=== PATIENT | female | born 1940 | race Caucasian/White ===

== ENCOUNTER 2019-09-18 12:15 | Inpatient (IN) | payer MEDICARE, OTHER ==
[~2019-09-18] VITALS: Ht 165.1 cm; Wt 101.6 kg
[2019-09-18] MEDS ORDERED: GLIMEPIRIDE1 MG (12:33)
[2019-09-18] MEDS ORDERED: VITAMIN (12:33)
[2019-09-18] MEDS ORDERED: INSULIN LI100 UNIT/1 (12:33)
[2019-09-18] MEDS ORDERED: LANTUS 3ML100 UNITS/ (12:33)
[2019-09-18] MEDS ORDERED: CALCITRIOL0.25 MCG (12:33)
[2019-09-18] MEDS ORDERED: LACTULOSE10 GM/152 (12:33)
[2019-09-18] MEDS ORDERED: TYLENOL325 M2 (12:33)
[2019-09-18] MEDS ORDERED: CIPROFLOXACIN500 MG (12:33)
[2019-09-18] MEDS ORDERED: SERTRALINE HCL100 MG (12:33)
[2019-09-18] MEDS ORDERED: PANTOPRAZOLE SO40 MG (12:33)
[2019-09-18] MEDS ORDERED: GABAPENTIN300 MG (12:33)
[2019-09-18] MEDS ORDERED: RIVASTIGMINE6 MG (12:33)
[2019-09-18] MEDS ORDERED: REGLAN5 MG (12:33)
[2019-09-18] MEDS ORDERED: ATORVASTATIN CA10 MG (12:33)
[2019-09-18 13:03] LABS: BASOPHILS # (AUTO) 0.1 (0.0-0.1); BASOPHILS % 1.2 % (0.0-1.0); EOSINOPHILS # (AUTO) 0.2 (0.0-0.4); EOSINOPHILS % 2.9 % (0.0-6.0); HEMOGLOBIN 12.2 g/dL (12.0-16.0); LYMPHOCYTES # (AUTO) 2.1 (1.0-3.2); LYMPHOCYTES % 31.9 % (18.0-39.1); MEAN CORPUSCULAR HEMOGLOBIN 28.3 pg (28-32); MEAN CORPUSCULAR HGB CONC 31.3 g/dL (31-35); MEAN CORPUSCULAR VOLUME 90.5 fL (81-99); MONOCYTES # (AUTO) 0.5 (0.2-0.8); NEUTROPHILS # (AUTO) 3.8 (2.1-6.9); NEUTROPHILS % 56.7 % (38.7-80.0); PLATELET COUNT 144 x10e3/uL (140-360); RED BLOOD COUNT 4.31 x10e6/uL (3.6-5.1); RED CELL DISTRIBUTION WIDTH 13.9 % (11.7-14.4)
[2019-09-18 13:12] LABS: CLARITY,URINE CLEAR (CLEAR); COLOR,URINE YELLOW (YELLOW); KETONES,URINE NEGATIVE (NEGATIVE); LEUKOCYTE ESTERASE ,URINE NEGATIVE (NEGATIVE); NITRITE,URINE NEGATIVE (NEGATIVE); PROTEIN,URINE DIPSTICK >=300 (NEGATIVE); URINE UROBILINOGEN 0.2 mg/dL (0.2 - 1)
[2019-09-18 13:13] LABS: BILIRUBIN,URINE NEGATIVE (NEGATIVE)
[2019-09-18 13:20] LABS: BACTERIA,URINE RARE /HPF; RBC,URINE 0-5 /HPF (0-5); WBC,URINE (MAN) 0-5 /HPF (0-5)
[2019-09-18 13:21] LABS: EPITHELIAL CELLS,URINE FEW /LPF
--- NOTE | 2019-09-18 13:30 | Diagnostic Imaging Report ---
TECHNIQUE: Frontal view of the chest. INDICATION: Weakness COMPARISON: Prior day. IMPRESSION: Lines and hardware: None. Heart and mediastinum: Obscured borders, probable cardiomegaly. Lungs and pleura: Scattered reticulonodular opacities represent atelectasis or atypical infection. Left lower lobe hazy opacity may represent infection. No pleural effusion. No pneumothorax. Soft tissues and bones: No acute abnormality. Signed by: Vasiliy Harris MD on 09/18/2019 1:26 PM
[2019-09-18 13:43] LABS: ALANINE AMINOTRANSFERASE 11 IU/L (0-55); ALBUMIN 2.9 g/dL (3.5-5.0); ALBUMIN/GLOBULIN RATIO 0.7 (0.8-2.0); ALKALINE PHOSPHATASE 79 IU/L (40-150); ANION GAP 11.7 mmol/L (8-16); BLOOD UREA NITROGEN 49 mg/dL (7-26); BUN/CREATININE RATIO 16 (6-25); CALCIUM 8.6 mg/dL (8.4-10.2); CARBON DIOXIDE 22 mmol/L (22-29); CHLORIDE 112 mmol/L (98-107); CREATINE KINASE 82 IU/L (29-168); CREATININE, SERUM 3.15 mg/dL (0.57-1.11); EST GLOMERULAR FILTRATION RATE 14 ML/MIN (60-); GLUCOSE 110 mg/dL (74-118); POTASSIUM 4.7 mmol/L (3.5-5.1); SODIUM 141 mmol/L (136-145)
--- OUTSIDE RECORDS SUMMARY | 2019-09-18 14:06 | XMS REPORT ---
[facility] Address Unknown Phone Unavailable Care Team Providers Care Frame Fixer Name Role Phone CHERELLE KISER Unavailable Unavailable Payers Payer Name Policy Type Policy Number Effective Date Expiration Date Problems This patient has no known problems. Allergies, Adverse Reactions, Alerts Allergy Name Allergy Type Status Severity Reaction(s) Onset Date Inactive Date Treating Clinician Comments Penicillins DA Active PA 2019-04-13 00:00:00 Sulfa (Sulfonamide Antibiotics) DA Active U 2019-03-25 00:00:00 No Known Contrast Allergies DA Active U 2001-02-13 00:00:00 No Known Food Allergies DA Active U 2001-02-13 00:00:00 No Known Other Allergies DA Active U 2001-02-13 00:00:00 SULFA DRUGS DA Active U 2001-02-13 00:00:00 Sulfa (Sulfonamide Antibiotics) DA Active U 2001-02-04 00:00:00 sulfamethoxazole DA Active U 2000-10-04 00:00:00 Medications This patient has no known medications. Results Test Description Test Time Test Comments Text Results Atomic Results Result Comments CHEST SINGLE (PORTABLE) 2019-09-18 13:17:00 [facility] [address], [place] [address] Patient Name: ANGEL SANTOS MR #: [id number] : 1940 Age/Sex: 79/F Req #: [id number] Adm Physician: Ordered by: CHERELLE KISER DO Report #: [id number] Location: ER Room/Bed: Procedure: [id number] DX/CHEST SINGLE (PORTABLE) Exam Date: 09/18/19 Exam Time: 1250 REPORT STATUS: Signed TECHNIQUE: Frontal view of the chest. INDICATION: Weakness COMPARISON: Prior day. IMPRESSION: Lines and hardware: None. Heart and mediastinum: Obscured borders, probable cardiomegaly. Lungs and pleura: Scattered reticulonodular opacities represent atelectasis or atypical infection. Left lower lobe hazy opacity may represent infection. No pleural effusion. No pneumothorax. Soft tissues and bones: No acute abnormality. Signed by: Vasiliy Cabrera MD on 09/18/2019 1:26 PM Dictated By: VASILIY CABRERA DO 1326 Transcribed By: DEEPA on 09/18/19 1326 COPY TO: CHERELLE KISER DO BASIC METABOLIC PANEL 2019-06-06 19:00:00 SODIUM (test code=NA) 142 mmol/L 136-145 POTASSIUM (test code=K) 4.3 mmol/L 3.5-5.1 CHLORIDE (test code=CL) 112.0 mmol/L 98-107 CARBON DIOXIDE (test code=CO2) 22.0 mmol/L 21-32 ANION GAP (test code=GAP) 12.3 10-20 GLUCOSE (test code=GLU) 115 mg/dL 74-106 BLOOD UREA NITROGEN (test code=BUN) 43 mg/dL 7-18 GLOMERULAR FILTRATION RATE (test code=GFR) 18 mL/min >=60 Estimated GFR by using Modified MDRD formula.Chronic kidney disease is defined as either kidney damageor GFR <60 mL/min/1.73 m2 for >3 months. CREATININE (test code=CREAT) 2.60 mg/dL 0.55-1.02 Note change in reference range due to change in reagent. BUN/CREATININE RATIO (test code=BUN/CREA) 16.5 10-20 CALCIUM (test code=CA) 8.7 mg/dL 8.5-10.1 [id number] 19:00:00* Test Item Value Reference Range Comments TROPONIN-I (test code=TROPI) <0.015 ng/mL 0-0.045 CBC W/O [id number] 19:00:00* Test Item Value Reference Range Comments WHITE BLOOD CELL (test code=WBC) 7.8 K/mm3 4.5-12.5 RED BLOOD CELL (test code=RBC) 4.07 mill/mm3 3.7-5.2 HEMOGLOBIN (test code=HGB) 11.9 gram/dL 11.5-15.5 HEMATOCRIT (test code=HCT) 37.0 % 36.0-46.0 MEAN CELL VOLUME (test code=MCV) 90.9 fL 80-98 MEAN CELL HGB (test code=MCH) 29.2 picogram 27.0-33.0 MEAN CELL HGB CONCETRATION (test code=MCHC) 32.2 gram/dL 33.0-36.0 RED CELL DISTRIBUTION WIDTH (test code=RDW) 13.2 % 11.6-16.2 PLATELET COUNT (test code=PLT) 190 K/mm3 150-450 MEAN PLATELET VOLUME (test code=MPV) 10.5 fL 6.7-11.0 BASIC METABOLIC [id number] 18:50:00* Test Item Value Reference Range Comments SODIUM (test code=NA) 142 mmol/L 136-145 POTASSIUM (test code=K) 4.3 mmol/L 3.5-5.1 CHLORIDE (test code=CL) 112.0 mmol/L 98-107 CARBON DIOXIDE (test code=CO2) mmol/L 21-32 ANION GAP (test code=GAP) 10-20 GLUCOSE (test code=GLU) mg/dL 74-106 BLOOD UREA NITROGEN (test code=BUN) mg/dL 7-18 GLOMERULAR FILTRATION RATE (test code=GFR) mL/min >=60 CREATININE (test code=CREAT) mg/dL 0.55-1.02 BUN/CREATININE RATIO (test code=BUN/CREA) 10-20 CALCIUM (test code=CA) mg/dL 8.5-10.1 [id number] 18:50:00* Test Item Value Reference Range Comments TROPONIN-I (test code=TROPI) ng/mL 0-0.045 COMPREHENSIVE METABOLIC [id number] 16:30:00* Test Item Value Reference Range Comments SODIUM (test code=NA) 142 mmol/L 136-145 POTASSIUM (test code=K) 5.0 mmol/L 3.5-5.1 CHLORIDE (test code=CL) 111.0 mmol/L 98-107 CARBON DIOXIDE (test code=CO2) 24.0 mmol/L 21-32 ANION GAP (test code=GAP) 12.0 10-20 GLUCOSE (test code=GLU) 72 mg/dL 74-106 BLOOD UREA NITROGEN (test code=BUN) 82 mg/dL 7-18 GLOMERULAR FILTRATION RATE (test code=GFR) 16 mL/min >=60 Estimated GFR by using Modified MDRD formula.Chronic kidney disease is defined as either kidney damageor GFR <60 mL/min/1.73 m2 for >3 months. CREATININE (test code=CREAT) 2.90 mg/dL 0.55-1.02 Note change in reference range due to change in reagent. BUN/CREATININE RATIO (test code=BUN/CREA) 28.2 10-20 TOTAL PROTEIN (test code=PROT) 7.5 gram/dL 6.4-8.2 ALBUMIN (test code=ALB) 3.2 g/dL 3.4-5.0 GLOBULIN (test code=GLOB) 4.3 gram/dL 2.7-4.2 ALBUMIN/GLOBULIN RATIO (test code=A/G) 0.7 0.75-1.50 CALCIUM (test code=CA) 9.7 mg/dL 8.5-10.1 BILIRUBIN TOTAL (test code=BILT) 0.20 mg/dL 0.0-1.0 SGOT/AST (test code=AST) 12 IUnit/L 15-37 SGPT/ALT (test code=ALT) 12 IUnit/L 12-78 ALKALINE PHOSPHATASE TOTAL (test code=ALKP) 67 IUnit/L 45-117 Note change in reference range due to change in reagent. COMPREHENSIVE METABOLIC [id number] 16:20:00* Test Item Value Reference Range Comments SODIUM (test code=NA) 142 mmol/L 136-145 POTASSIUM (test code=K) 5.0 mmol/L 3.5-5.1 CHLORIDE (test code=CL) 111.0 mmol/L 98-107 CARBON DIOXIDE (test code=CO2) mmol/L 21-32 ANION GAP (test code=GAP) 10-20 GLUCOSE (test code=GLU) mg/dL 74-106 BLOOD UREA NITROGEN (test code=BUN) mg/dL 7-18 GLOMERULAR FILTRATION RATE (test code=GFR) mL/min >=60 CREATININE (test code=CREAT) mg/dL 0.55-1.02 BUN/CREATININE RATIO (test code=BUN/CREA) 10-20 TOTAL PROTEIN (test code=PROT) gram/dL 6.4-8.2 ALBUMIN (test code=ALB) g/dL 3.4-5.0 GLOBULIN (test code=GLOB) gram/dL 2.7-4.2 ALBUMIN/GLOBULIN RATIO (test code=A/G) 0.75-1.50 CALCIUM (test code=CA) mg/dL 8.5-10.1 BILIRUBIN TOTAL (test code=BILT) mg/dL 0.0-1.0 SGOT/AST (test code=AST) IUnit/L 15-37 SGPT/ALT (test code=ALT) IUnit/L 12-78 ALKALINE PHOSPHATASE TOTAL (test code=ALKP) IUnit/L 45-117 CBC W/AUTO [id number] 16:08:00* Test Item Value Reference Range Comments WHITE BLOOD CELL (test code=WBC) 5.8 K/mm3 4.5-12.5 RED BLOOD CELL (test code=RBC) 3.78 mill/mm3 3.7-5.2 HEMOGLOBIN (test code=HGB) 11.3 gram/dL 11.5-15.5 HEMATOCRIT (test code=HCT) 36.0 % 36.0-46.0 MEAN CELL VOLUME (test code=MCV) 95.2 fL 80-98 MEAN CELL HGB (test code=MCH) 29.9 picogram 27.0-33.0 MEAN CELL HGB CONCETRATION (test code=MCHC) 31.4 gram/dL 33.0-36.0 RED CELL DISTRIBUTION WIDTH (test code=RDW) 13.2 % 11.6-16.2 RED CELL DISTRIBUTION WIDTH SD (test code=RDW-SD) 45.6 fL 37.0-51.0 PLATELET COUNT (test code=PLT) 167 K/mm3 150-450 MEAN PLATELET VOLUME (test code=MPV) 10.8 fL 6.7-11.0 NEUTROPHIL % (test code=NT%) 58.6 % 39.0-69.0 IMMATURE GRANULOCYTE % (test code=IG%) 0.9 % 0.0-5.0 LYMPHOCYTE % (test code=LY%) 28.5 % 25.0-55.0 MONOCYTE % (test code=MO%) 7.7 % 0.0-10.0 EOSINOPHIL % (test code=EO%) 2.9 % 0.0-5.0 BASOPHIL % (test code=BA%) 1.4 % 0.0-1.0 NUCLEATED RBC % (test code=NRBC%) 0.0 % 0-0 NEUTROPHIL # (test code=NT#) 3.41 K/mm3 1.8-7.7 IMMATURE GRANULOCYTE # (test code=IG#) 0.05 x10 3/uL 0-0.03 LYMPHOCYTE # (test code=LY#) 1.66 K/mm3 1.0-5.0 MONOCYTE # (test code=MO#) 0.45 K/mm3 0-0.8 EOSINOPHIL # (test code=EO#) 0.17 K/mm3 0.0-0.5 BASOPHIL # (test code=BA#) 0.08 K/mm3 0.0-0.2 NUCLEATED RBC # (test code=NRBC#) 0.00 K/mm3 0.0-0.1 MANUAL DIFF REQUIRED (test code=MDIFF) NO [id number] 13:07:00* Test Item Value Reference Range Comments GLUBED (test code=GLUBED) 125 mg/dL 74-106 [facility] [id number] 08:31:00* Test Item Value Reference Range Comments GLUBED (test code=GLUBED) 96 mg/dL 74-106 [facility] COMPREHENSIVE METABOLIC [id number] 06:46:00* Test Item Value Reference Range Comments SODIUM (test code=NA) 142 mmol/L 136-145 POTASSIUM (test code=K) 4.1 mmol/L 3.5-5.1 CHLORIDE (test code=CL) 109.0 mmol/L 98-107 CARBON DIOXIDE (test code=CO2) 25.0 mmol/L 21-32 ANION GAP (test code=GAP) 12.1 10-20 GLUCOSE (test code=GLU) 129 mg/dL 74-106 BLOOD UREA NITROGEN (test code=BUN) 44 mg/dL 7-18 GLOMERULAR FILTRATION RATE (test code=GFR) 17 mL/min >=60 Estimated GFR by using Modified MDRD formula.Chronic kidney disease is defined as either kidney damageor GFR <60 mL/min/1.73 m2 for >3 months. CREATININE (test code=CREAT) 2.70 mg/dL 0.55-1.02 Note change in reference range due to change in reagent. BUN/CREATININE RATIO (test code=BUN/CREA) 16.3 10-20 TOTAL PROTEIN (test code=PROT) 6.6 gram/dL 6.4-8.2 ALBUMIN (test code=ALB) 2.7 g/dL 3.4-5.0 GLOBULIN (test code=GLOB) 3.9 gram/dL 2.7-4.2 ALBUMIN/GLOBULIN RATIO (test code=A/G) 0.7 0.75-1.50 CALCIUM (test code=CA) 8.7 mg/dL 8.5-10.1 BILIRUBIN TOTAL (test code=BILT) 0.20 mg/dL 0.0-1.0 SGOT/AST (test code=AST) 8 IUnit/L 15-37 SGPT/ALT (test code=ALT) 7 IUnit/L 12-78 ALKALINE PHOSPHATASE TOTAL (test code=ALKP) 58 IUnit/L 45-117 Note change in reference range due to change in reagent. [id number] 06:46:00* Test Item Value Reference Range Comments MAGNESIUM (test code=MAG) 2.0 mg/dL 1.8-2.4 COMPREHENSIVE METABOLIC [id number] 06:33:00* Test Item Value Reference Range Comments SODIUM (test code=NA) 142 mmol/L 136-145 POTASSIUM (test code=K) 4.1 mmol/L 3.5-5.1 CHLORIDE (test code=CL) 109.0 mmol/L 98-107 CARBON DIOXIDE (test code=CO2) mmol/L 21-32 ANION GAP (test code=GAP) 10-20 GLUCOSE (test code=GLU) mg/dL 74-106 BLOOD UREA NITROGEN (test code=BUN) mg/dL 7-18 GLOMERULAR FILTRATION RATE (test code=GFR) mL/min >=60 CREATININE (test code=CREAT) mg/dL 0.55-1.02 BUN/CREATININE RATIO (test code=BUN/CREA) 10-20 TOTAL PROTEIN (test code=PROT) gram/dL 6.4-8.2 ALBUMIN (test code=ALB) g/dL 3.4-5.0 GLOBULIN (test code=GLOB) gram/dL 2.7-4.2 ALBUMIN/GLOBULIN RATIO (test code=A/G) 0.75-1.50 CALCIUM (test code=CA) mg/dL 8.5-10.1 BILIRUBIN TOTAL (test code=BILT) mg/dL 0.0-1.0 SGOT/AST (test code=AST) IUnit/L 15-37 SGPT/ALT (test code=ALT) IUnit/L 12-78 ALKALINE PHOSPHATASE TOTAL (test code=ALKP) IUnit/L 45-117 [id number] 06:33:00* Test Item Value Reference Range Comments MAGNESIUM (test code=MAG) mg/dL 1.8-2.4 PROTHROMBIN [id number] 06:19:00* Test Item Value Reference Range Comments PROTHROMBIN TIME PATIENT (test code=PTP) 11.2 seconds 9.0-14.0 INTERNATIONAL NORMAL RATIO (test code=INR) 1.0 0.8-1.2 The therapeutic range for oral anticoagulant therapy formost indications is an international normalized ratio (INR)of between 2.0 and 3.0. The recommended therapeutic INRrange for various clinical situations is listed below: Clinical Situation INR range Pulmonary e mbolism treatment (2.0-3.0)Venous thrombosis treatmentVenous thrombosis prophylaxis (high risk surgery)Prevention of systemic embolism from: Acute myocardial infarction Valvular heart disease Atrial fibrillation Mechanical prosthetic heart valves (2.5-3.5) IS PATIENT ON ANTICOAGULANTS? YLIST ANTICOAGULANTS ASPIRINCBC W/AUTO DIFF 2019-03-29 06:11:00* Test Item Value Reference Range Comments WHITE BLOOD CELL (test code=WBC) 7.9 K/mm3 4.5-12.5 RED BLOOD CELL (test code=RBC) 3.84 mill/mm3 3.7-5.2 HEMOGLOBIN (test code=HGB) 11.5 gram/dL 11.5-15.5 HEMATOCRIT (test code=HCT) 35.0 % 36.0-46.0 MEAN CELL VOLUME (test code=MCV) 91.1 fL 80-98 MEAN CELL HGB (test code=MCH) 29.9 picogram 27.0-33.0 MEAN CELL HGB CONCETRATION (test code=MCHC) 32.9 gram/dL 33.0-36.0 RED CELL DISTRIBUTION WIDTH (test code=RDW) 13.5 % 11.6-16.2 RED CELL DISTRIBUTION WIDTH SD (test code=RDW-SD) 45.1 fL 37.0-51.0 PLATELET COUNT (test code=PLT) 161 K/mm3 150-450 MEAN PLATELET VOLUME (test code=MPV) 10.5 fL 6.7-11.0 NEUTROPHIL % (test code=NT%) 53.6 % 39.0-69.0 IMMATURE GRANULOCYTE % (test code=IG%) 0.9 % 0.0-5.0 LYMPHOCYTE % (test code=LY%) 31.7 % 25.0-55.0 MONOCYTE % (test code=MO%) 9.1 % 0.0-10.0 EOSINOPHIL % (test code=EO%) 3.2 % 0.0-5.0 BASOPHIL % (test code=BA%) 1.5 % 0.0-1.0 NUCLEATED RBC % (test code=NRBC%) 0.0 % 0-0 NEUTROPHIL # (test code=NT#) 4.22 K/mm3 1.8-7.7 IMMATURE GRANULOCYTE # (test code=IG#) 0.07 x10 3/uL 0-0.03 LYMPHOCYTE # (test code=LY#) 2.50 K/mm3 1.0-5.0 MONOCYTE # (test code=MO#) 0.72 K/mm3 0-0.8 EOSINOPHIL # (test code=EO#) 0.25 K/mm3 0.0-0.5 BASOPHIL # (test code=BA#) 0.12 K/mm3 0.0-0.2 NUCLEATED RBC # (test code=NRBC#) 0.00 K/mm3 0.0-0.1 CBC W/AUTO [id number] 06:06:00* Test Item Value Reference Range Comments WHITE BLOOD CELL (test code=WBC) K/mm3 4.5-12.5 RED BLOOD CELL (test code=RBC) mill/mm3 3.7-5.2 HEMOGLOBIN (test code=HGB) 11.5 gram/dL 11.5-15.5 HEMATOCRIT (test code=HCT) % 36.0-46.0 MEAN CELL VOLUME (test code=MCV) fL 80-98 MEAN CELL HGB (test code=MCH) picogram 27.0-33.0 MEAN CELL HGB CONCETRATION (test code=MCHC) gram/dL 33.0-36.0 RED CELL DISTRIBUTION WIDTH (test code=RDW) % 11.6-16.2 RED CELL DISTRIBUTION WIDTH SD (test code=RDW-SD) fL 37.0-51.0 PLATELET COUNT (test code=PLT) K/mm3 150-450 MEAN PLATELET VOLUME (test code=MPV) fL 6.7-11.0 NEUTROPHIL % (test code=NT%) % 39.0-69.0 IMMATURE GRANULOCYTE % (test code=IG%) % 0.0-5.0 LYMPHOCYTE % (test code=LY%) % 25.0-55.0 MONOCYTE % (test code=MO%) % 0.0-10.0 EOSINOPHIL % (test code=EO%) % 0.0-5.0 BASOPHIL % (test code=BA%) % 0.0-1.0 NEUTROPHIL # (test code=NT#) K/mm3 1.8-7.7 LYMPHOCYTE # (test code=LY#) K/mm3 1.0-5.0 MONOCYTE # (test code=MO#) K/mm3 0-0.8 EOSINOPHIL # (test code=EO#) K/mm3 0.0-0.5 BASOPHIL # (test code=BA#) K/mm3 0.0-0.2 [id number] 20:39:00* Test Item Value Reference Range Comments GLUBED (test code=GLUBED) 138 mg/dL 74-106 Performed by certified apple press operator at [facility] [id number] 15:26:00* Test Item Value Reference Range Comments GLUBED (test code=GLUBED) 154 mg/dL 74-106 Performed by certified apple press operator at [facility] [id number] 11:59:00* Test Item Value Reference Range Comments GLUBED (test code=GLUBED) 166 mg/dL 74-106 Performed by certified apple press operator at [facility] [id number] 07:24:00* Test Item Value Reference Range Comments GLUBED (test code=GLUBED) 85 mg/dL 74-106 Performed by certified apple press operator at [facility] BASIC METABOLIC [id number] 05:19:00* Test Item Value Reference Range Comments SODIUM (test code=NA) 145 mmol/L 136-145 POTASSIUM (test code=K) 4.8 mmol/L 3.5-5.1 CHLORIDE (test code=CL) 112.0 mmol/L 98-107 CARBON DIOXIDE (test code=CO2) 25.0 mmol/L 21-32 ANION GAP (test code=GAP) 12.8 10-20 GLUCOSE (test code=GLU) 85 mg/dL 74-106 BLOOD UREA NITROGEN (test code=BUN) 42 mg/dL 7-18 GLOMERULAR FILTRATION RATE (test code=GFR) 18 mL/min >=60 Estimated GFR by using Modified MDRD formula.Chronic kidney disease is defined as either kidney damageor GFR <60 mL/min/1.73 m2 for >3 months. CREATININE (test code=CREAT) 2.60 mg/dL 0.55-1.02 Note change in reference range due to change in reagent. BUN/CREATININE RATIO (test code=BUN/CREA) 15.8 10-20 CALCIUM (test code=CA) 9.0 mg/dL 8.5-10.1 BASIC METABOLIC [id number] 05:11:00* Test Item Value Reference Range Comments SODIUM (test code=NA) 145 mmol/L 136-145 POTASSIUM (test code=K) 4.8 mmol/L 3.5-5.1 CHLORIDE (test code=CL) 112.0 mmol/L 98-107 CARBON DIOXIDE (test code=CO2) mmol/L 21-32 ANION GAP (test code=GAP) 10-20 GLUCOSE (test code=GLU) mg/dL 74-106 BLOOD UREA NITROGEN (test code=BUN) mg/dL 7-18 GLOMERULAR FILTRATION RATE (test code=GFR) mL/min >=60 CREATININE (test code=CREAT) mg/dL 0.55-1.02 BUN/CREATININE RATIO (test code=BUN/CREA) 10-20 CALCIUM (test code=CA) mg/dL 8.5-10.1 [id number] 20:51:00* Test Item Value Reference Range Comments GLUBED (test code=GLUBED) 146 mg/dL 74-106 Performed by certified apple press operator at [facility] [id number] 15:55:00* Test Item Value Reference Range Comments GLUBED (test code=GLUBED) 105 mg/dL 74-106 Performed by certified apple press operator at [facility] [id number] 11:50:00* Test Item Value Reference Range Comments GLUBED (test code=GLUBED) 161 mg/dL 74-106 Performed by certified apple press operator at [facility] [id number] 07:47:00* Test Item Value Reference Range Comments GLUBED (test code=GLUBED) 92 mg/dL 74-106 Performed by certified apple press operator at [facility] BASIC METABOLIC [id number] 06:15:00* Test Item Value Reference Range Comments SODIUM (test code=NA) 143 mmol/L 136-145 POTASSIUM (test code=K) 4.2 mmol/L 3.5-5.1 CHLORIDE (test code=CL) 111.0 mmol/L 98-107 CARBON DIOXIDE (test code=CO2) 23.0 mmol/L 21-32 ANION GAP (test code=GAP) 13.2 10-20 GLUCOSE (test code=GLU) 118 mg/dL 74-106 BLOOD UREA NITROGEN (test code=BUN) 39 mg/dL 7-18 GLOMERULAR FILTRATION RATE (test code=GFR) 17 mL/min >=60 Estimated GFR by using Modified MDRD formula.Chronic kidney disease is defined as either kidney damageor GFR <60 mL/min/1.73 m2 for >3 months. CREATININE (test code=CREAT) 2.70 mg/dL 0.55-1.02 Note change in reference range due to change in reagent. BUN/CREATININE RATIO (test code=BUN/CREA) 14.6 10-20 CALCIUM (test code=CA) 8.6 mg/dL 8.5-10.1 BASIC METABOLIC [id number] 05:59:00* Test Item Value Reference Range Comments SODIUM (test code=NA) 143 mmol/L 136-145 POTASSIUM (test code=K) 4.2 mmol/L 3.5-5.1 CHLORIDE (test code=CL) 111.0 mmol/L 98-107 CARBON DIOXIDE (test code=CO2) mmol/L 21-32 ANION GAP (test code=GAP) 10-20 GLUCOSE (test code=GLU) mg/dL 74-106 BLOOD UREA NITROGEN (test code=BUN) mg/dL 7-18 GLOMERULAR FILTRATION RATE (test code=GFR) mL/min >=60 CREATININE (test code=CREAT) mg/dL 0.55-1.02 BUN/CREATININE RATIO (test code=BUN/CREA) 10-20 CALCIUM (test code=CA) mg/dL 8.5-10.1 CBC W/AUTO [id number] 05:37:00* Test Item Value Reference Range Comments WHITE BLOOD CELL (test code=WBC) K/mm3 4.5-12.5 RED BLOOD CELL (test code=RBC) mill/mm3 3.7-5.2 HEMOGLOBIN (test code=HGB) 11.7 gram/dL 11.5-15.5 HEMATOCRIT (test code=HCT) % 36.0-46.0 MEAN CELL VOLUME (test code=MCV) fL 80-98 MEAN CELL HGB (test code=MCH) picogram 27.0-33.0 MEAN CELL HGB CONCETRATION (test code=MCHC) gram/dL 33.0-36.0 RED CELL DISTRIBUTION WIDTH (test code=RDW) % 11.6-16.2 RED CELL DISTRIBUTION WIDTH SD (test code=RDW-SD) fL 37.0-51.0 PLATELET COUNT (test code=PLT) K/mm3 150-450 MEAN PLATELET VOLUME (test code=MPV) fL 6.7-11.0 NEUTROPHIL % (test code=NT%) % 39.0-69.0 IMMATURE GRANULOCYTE % (test code=IG%) % 0.0-5.0 LYMPHOCYTE % (test code=LY%) % 25.0-55.0 MONOCYTE % (test code=MO%) % 0.0-10.0 EOSINOPHIL % (test code=EO%) % 0.0-5.0 BASOPHIL % (test code=BA%) % 0.0-1.0 NEUTROPHIL # (test code=NT#) K/mm3 1.8-7.7 LYMPHOCYTE # (test code=LY#) K/mm3 1.0-5.0 MONOCYTE # (test code=MO#) K/mm3 0-0.8 EOSINOPHIL # (test code=EO#) K/mm3 0.0-0.5 BASOPHIL # (test code=BA#) K/mm3 0.0-0.2 CBC W/AUTO [id number] 05:37:00* Test Item Value Reference Range Comments WHITE BLOOD CELL (test code=WBC) 7.0 K/mm3 4.5-12.5 RED BLOOD CELL (test code=RBC) 3.90 mill/mm3 3.7-5.2 HEMOGLOBIN (test code=HGB) 11.7 gram/dL 11.5-15.5 HEMATOCRIT (test code=HCT) 35.0 % 36.0-46.0 MEAN CELL VOLUME (test code=MCV) 89.7 fL 80-98 MEAN CELL HGB (test code=MCH) 30.0 picogram 27.0-33.0 MEAN CELL HGB CONCETRATION (test code=MCHC) 33.4 gram/dL 33.0-36.0 RED CELL DISTRIBUTION WIDTH (test code=RDW) 13.0 % 11.6-16.2 RED CELL DISTRIBUTION WIDTH SD (test code=RDW-SD) 42.7 fL 37.0-51.0 PLATELET COUNT (test code=PLT) 153 K/mm3 150-450 MEAN PLATELET VOLUME (test code=MPV) 10.7 fL 6.7-11.0 NEUTROPHIL % (test code=NT%) 54.8 % 39.0-69.0 IMMATURE GRANULOCYTE % (test code=IG%) 0.9 % 0.0-5.0 LYMPHOCYTE % (test code=LY%) 31.5 % 25.0-55.0 MONOCYTE % (test code=MO%) 8.6 % 0.0-10.0 EOSINOPHIL % (test code=EO%) 3.1 % 0.0-5.0 BASOPHIL % (test code=BA%) 1.1 % 0.0-1.0 NUCLEATED RBC % (test code=NRBC%) 0.0 % 0-0 NEUTROPHIL # (test code=NT#) 3.83 K/mm3 1.8-7.7 IMMATURE GRANULOCYTE # (test code=IG#) 0.06 x10 3/uL 0-0.03 LYMPHOCYTE # (test code=LY#) 2.20 K/mm3 1.0-5.0 MONOCYTE # (test code=MO#) 0.60 K/mm3 0-0.8 EOSINOPHIL # (test code=EO#) 0.22 K/mm3 0.0-0.5 BASOPHIL # (test code=BA#) 0.08 K/mm3 0.0-0.2 NUCLEATED RBC # (test code=NRBC#) 0.00 K/mm3 0.0-0.1 MANUAL DIFF REQUIRED (test code=MDIFF) NO [id number] 22:44:00* Test Item Value Reference Range Comments GLUBED (test code=GLUBED) 120 mg/dL 74-106 Performed by certified apple press operator at [facility] UR PROTEIN/CREATININE [id number] 19:17:00* Test Item Value Reference Range Comments UR PROTEIN RANDOM (test code=PROTU) 92.6 mg/dL 0.0-11.9 Protein levels may be falsely elevated in patients withelevated level of aminoglycoside antibiotics in CSF and inhighly concentrated urine specimens. If false elevation issuspected, contact lab for alternated testing technique. UR CREATININE RANDOM (test code=CREATU) 28.0 mg/dL 30-125 PROTEIN/CREATININE RATIO (test code=P/CRATIO) 3.31 RATIO 0.0-0.20 [id number] 16:07:00* Test Item Value Reference Range Comments GLUBED (test code=GLUBED) 175 mg/dL 74-106 Performed by certified apple press operator at [facility] SED RATE [id number] 12:54:00* Test Item Value Reference Range Comments SED RATE WESTERGREN (test code=SEDW) 44 mm/hr 0-20 SED [id number] 12:54:00* Test Item Value Reference Range Comments SED RATE (test code=SEDW) 44 mm/hr 0-20 WINTROBE METHOD: NORMAL RANGE FOR MEN: 0-9 MM/HR WOMAN: 0-20 MM/HR [id number] 11:33:00* Test Item Value Reference Range Comments GLUBED (test code=GLUBED) 96 mg/dL 74-106 Performed by certified apple press operator at [facility] - XR FOOT 2 VIEWS [id number] 09:18:00 FAX: Juni Rees MD [phone] [place]: St: ADM Name: ANGEL ROTH [facility] : [birth year] Age/S: 78/F [address] [facility] Unit #: [id number] Loc: [address] [address] Phys: Juni Tejeda MD Acct: [id number] Dis Date: Status: ADM IN PHONE #: [phone] Exam Date: 03/26/2019 0851 FAX #: [phone] Reason: RT FOOT ULCER EXAMS: CPT CODE: [id number] XR FOOT [address] [place] [id number] HISTORY: Right foot ulcer. COMPARISON: None available. AP and lateral view of the right foot: Postop changes within the distal first metatarsal bone with screw stabilizing the distal first metatarsal bone. Polyarticular joint space narrowing. Severe narrowing of the tarsal metatarsal joint space especially. Os navicularis. Calcification of the plantar fascia Achilles enthesophyte. Vascular calcifications. No erosive or destructive changes are visible. Correlate with MRI scan for further evaluation. Mild diffuse soft tissue swelling especially along the phalanges. IMPR ESSION: No erosive or destructive changes noted. Soft tissue s welling of the phalanges with advanced degenerative changes. Correlate w ith MRI scan for osteomyelitis evaluation. Electronically Si gned by Es Noel on 03/26/2019 at 0918 Reported and signed by: Fco Noel M.D. CC: Juni Tejeda MD Technologist: Linnette Kumar; STUDENT ERIC HNOLOGIST Trnscrd Date/Time/By: 03/26/2019 (917) : By: [email or web address] Orig Print D/T: S: 03/26/2019 (920) PAGE 1 Signed Report [id number] 08:04:00* Test Item Value Reference Range Comments GLUBED (test code=GLUBED) 80 mg/dL 74-106 Performed by certified apple press operator at [facility] [id number] 07:39:00* Test Item Value Reference Range Comments GLYCOSYLATED HEMOGLOBIN (HA1C) (test code=GLYHGB) 6.7 % HbA1 4.8-6.0 ESTIMATED AVERAGE GLUCOSE (test code=EAG) 146 MG/DL C REACTIVE [id number] 07:03:00* Test Item Value Reference Range Comments C REACTIVE PROTEIN (test code=CRP) 1.15 mg/dL 0-0.3 COMPREHENSIVE METABOLIC [id number] 06:50:00* Test Item Value Reference Range Comments SODIUM (test code=NA) 144 mmol/L 136-145 POTASSIUM (test code=K) 4.3 mmol/L 3.5-5.1 CHLORIDE (test code=CL) 112.0 mmol/L 98-107 CARBON DIOXIDE (test code=CO2) 24.0 mmol/L 21-32 ANION GAP (test code=GAP) 12.3 10-20 GLUCOSE (test code=GLU) 84 mg/dL 74-106 BLOOD UREA NITROGEN (test code=BUN) 45 mg/dL 7-18 GLOMERULAR FILTRATION RATE (test code=GFR) 19 mL/min >=60 Estimated GFR by using Modified MDRD formula.Chronic kidney disease is defined as either kidney damageor GFR <60 mL/min/1.73 m2 for >3 months. CREATININE (test code=CREAT) 2.40 mg/dL 0.55-1.02 Note change in reference range due to change in reagent. BUN/CREATININE RATIO (test code=BUN/CREA) 18.4 10-20 TOTAL PROTEIN (test code=PROT) 6.6 gram/dL 6.4-8.2 ALBUMIN (test code=ALB) 2.8 g/dL 3.4-5.0 GLOBULIN (test code=GLOB) 3.8 gram/dL 2.7-4.2 ALBUMIN/GLOBULIN RATIO (test code=A/G) 0.7 0.75-1.50 CALCIUM (test code=CA) 8.6 mg/dL 8.5-10.1 BILIRUBIN TOTAL (test code=BILT) 0.30 mg/dL 0.0-1.0 SGOT/AST (test code=AST) 13 IUnit/L 15-37 SGPT/ALT (test code=ALT) 10 IUnit/L 12-78 ALKALINE PHOSPHATASE TOTAL (test code=ALKP) 57 IUnit/L 45-117 Note change in reference range due to change in reagent. LIPID PROFILE (CORONARY RISK)2019-03-26 06:50:00* Test Item Value Reference Range Comments TRIGLYCERIDES (test code=TRIG) 170 mg/dL 20-150 CHOLESTEROL (test code=CHOL) 171 mg/dL 0-200 CHOLESTEROL/HDL RATIO (test code=CHOLHDL) 4.0 RATIO 0-4.9 RISK ASSOCIATED WITH CHOL/HDL RATIOS: Risk Male Female1/2 AVERAGE 3.43 3.27AVERAGE 4.97 4.442X AVERAGE 9.55 7.053X AVERAGE 23.39 11.04 REFERENCE VALUE IS RELATED TO RISK LEVELS ASRECOMMENDED BY THE [facility]. HEART, LUNG, AND BLOOD INST. HDL CHOLESTEROL (test code=HDL) 40 mg/dL 40-60 LIPOPROTEIN LDL (test code=LDL) 112 mg/dL 100-129 RN PERSONNEL, CONTACT PHYSICIAN IMMEDIATELY IF THIS IS A STROKE, AMI OR CAROTID STENOSIS PATIENT WHEN THE LDL >100 (1ST OCCURENCE, THIS ADMISSION) Reference Interval: mg/dL mmol/L Optimal <100 <2.6Near/above optimal 100-129 2.6- 3.3Borderline High 130-159 3.4-4.1High 160-189 4.1-4.9Very High >=190 >=4.9=========This LDL result is a direct measurement.========= [id number] 06:50:00* Test Item Value Reference Range Comments PHOSPHORUS (test code=PHOS) 3.2 mg/dL 2.5-4.9 URIC [id number] 06:50:00* Test Item Value Reference Range Comments URIC ACID (test code=URIC) 7.1 mg/dL 2.6-7.2 [id number] 06:50:00* Test Item Value Reference Range Comments MAGNESIUM (test code=MAG) 1.8 mg/dL 1.8-2.4 TSH REFLEX TO [id number] 06:50:00* Test Item Value Reference Range Comments TSH REFLEX TO FT4 (test code=TSHREFLEX) 2.6 0.4-5.5 B-TYPE NATRIURETIC [id number] 06:39:00* Test Item Value Reference Range Comments B-TYPE NATRIURETIC PEPTIDE (test code=BNP) 104.68 pgram/mL 0-100 LACTIC [id number] 06:39:00* Test Item Value Reference Range Comments LACTIC ACID (test code=LACT) 0.7 mmol/L 0.4-1.9 COMPREHENSIVE METABOLIC [id number] 06:38:00* Test Item Value Reference Range Comments SODIUM (test code=NA) 144 mmol/L 136-145 POTASSIUM (test code=K) 4.3 mmol/L 3.5-5.1 CHLORIDE (test code=CL) 112.0 mmol/L 98-107 CARBON DIOXIDE (test code=CO2) mmol/L 21-32 ANION GAP (test code=GAP) 10-20 GLUCOSE (test code=GLU) mg/dL 74-106 BLOOD UREA NITROGEN (test code=BUN) mg/dL 7-18 GLOMERULAR FILTRATION RATE (test code=GFR) mL/min >=60 CREATININE (test code=CREAT) mg/dL 0.55-1.02 BUN/CREATININE RATIO (test code=BUN/CREA) 10-20 TOTAL PROTEIN (test code=PROT) gram/dL 6.4-8.2 ALBUMIN (test code=ALB) g/dL 3.4-5.0 GLOBULIN (test code=GLOB) gram/dL 2.7-4.2 ALBUMIN/GLOBULIN RATIO (test code=A/G) 0.75-1.50 CALCIUM (test code=CA) mg/dL 8.5-10.1 BILIRUBIN TOTAL (test code=BILT) mg/dL 0.0-1.0 SGOT/AST (test code=AST) IUnit/L 15-37 SGPT/ALT (test code=ALT) IUnit/L 12-78 ALKALINE PHOSPHATASE TOTAL (test code=ALKP) IUnit/L 45-117 LIPID PROFILE (CORONARY RISK)2019-03-26 06:38:00* Test Item Value Reference Range Comments TRIGLYCERIDES (test code=TRIG) mg/dL 20-150 CHOLESTEROL (test code=CHOL) mg/dL 0-200 CHOLESTEROL/HDL RATIO (test code=CHOLHDL) RATIO 0-4.9 HDL CHOLESTEROL (test code=HDL) mg/dL 40-60 LIPOPROTEIN LDL (test code=LDL) mg/dL 100-129 [id number] 06:38:00* Test Item Value Reference Range Comments PHOSPHORUS (test code=PHOS) mg/dL 2.5-4.9 URIC [id number] 06:38:00* Test Item Value Reference Range Comments URIC ACID (test code=URIC) mg/dL 2.6-7.2 [id number] 06:38:00* Test Item Value Reference Range Comments MAGNESIUM (test code=MAG) mg/dL 1.8-2.4 TSH REFLEX TO [id number] 06:38:00* Test Item Value Reference Range Comments TSH REFLEX TO FT4 (test code=TSHREFLEX) 0.4-5.5 PROTHROMBIN [id number] 06:28:00* Test Item Value Reference Range Comments PROTHROMBIN TIME PATIENT (test code=PTP) 11.6 seconds 9.0-14.0 INTERNATIONAL NORMAL RATIO (test code=INR) 1.0 0.8-1.2 The therapeutic range for oral anticoagulant therapy formost indications is an international normalized ratio (INR)of between 2.0 and 3.0. The recommended therapeutic INRrange for various clinical situations is listed below: Clinical Situation INR range Pulmonary e mbolism treatment (2.0-3.0)Venous thrombosis treatmentVenous thrombosis prophylaxis (high risk surgery)Prevention of systemic embolism from: Acute myocardial infarction Valvular heart disease Atrial fibrillation Mechanical prosthetic heart valves (2.5-3.5) IS PATIENT ON ANTICOAGULANTS? YLIST ANTICOAGULANTS ASPIRINCBC W/AUTO DIFF 2019-03-26 06:06:00* Test Item Value Reference Range Comments WHITE BLOOD CELL (test code=WBC) 6.5 K/mm3 4.5-12.5 RED BLOOD CELL (test code=RBC) 3.61 mill/mm3 3.7-5.2 HEMOGLOBIN (test code=HGB) 10.8 gram/dL 11.5-15.5 HEMATOCRIT (test code=HCT) 33.7 % 36.0-46.0 MEAN CELL VOLUME (test code=MCV) 93.4 fL 80-98 MEAN CELL HGB (test code=MCH) 29.9 picogram 27.0-33.0 MEAN CELL HGB CONCETRATION (test code=MCHC) 32.0 gram/dL 33.0-36.0 RED CELL DISTRIBUTION WIDTH (test code=RDW) 13.2 % 11.6-16.2 RED CELL DISTRIBUTION WIDTH SD (test code=RDW-SD) 45.1 fL 37.0-51.0 PLATELET COUNT (test code=PLT) 141 K/mm3 150-450 MEAN PLATELET VOLUME (test code=MPV) 10.5 fL 6.7-11.0 NEUTROPHIL % (test code=NT%) 51.1 % 39.0-69.0 IMMATURE GRANULOCYTE % (test code=IG%) 0.9 % 0.0-5.0 LYMPHOCYTE % (test code=LY%) 35.9 % 25.0-55.0 MONOCYTE % (test code=MO%) 8.0 % 0.0-10.0 EOSINOPHIL % (test code=EO%) 2.6 % 0.0-5.0 BASOPHIL % (test code=BA%) 1.5 % 0.0-1.0 NUCLEATED RBC % (test code=NRBC%) 0.0 % 0-0 NEUTROPHIL # (test code=NT#) 3.32 K/mm3 1.8-7.7 IMMATURE GRANULOCYTE # (test code=IG#) 0.06 x10 3/uL 0-0.03 LYMPHOCYTE # (test code=LY#) 2.34 K/mm3 1.0-5.0 MONOCYTE # (test code=MO#) 0.52 K/mm3 0-0.8 EOSINOPHIL # (test code=EO#) 0.17 K/mm3 0.0-0.5 BASOPHIL # (test code=BA#) 0.10 K/mm3 0.0-0.2 NUCLEATED RBC # (test code=NRBC#) 0.00 K/mm3 0.0-0.1 MANUAL DIFF REQUIRED (test code=MDIFF) NO [id number] 21:16:00* Test Item Value Reference Range Comments GLUBED (test code=GLUBED) 138 mg/dL 74-106 Performed by certified apple press operator at [facility] - US ABDOMEN [id number] 20:03:00 Name: ANGEL SANTOS [facility] : 1940 Age/S: 78 / F [address] [facility] Unit #: [id number] Loc: EULALIO Ugal[place] [address] Phys: Juni Tejeda MD Acct: [id number] Dis Date: Status: ADM IN PHONE #: [phone] Exam Date: 03/25/2019 1949 FAX #: [phone] Reason: KATIE/CKD / ABDOMINAL PAIN EXAMS: CPT CODE: [id number] US ABDOMEN COMPLETE [id number] REASON FOR EXAM: KATIE/CKD / ABDOMINAL PAIN EXAM ORDER DATE: 03/25/2019 4:56 PM Attending Es: Juni Tejeda MD PROCEDURE: - US ABDOMEN COMPLETE FINDINGS: The liver is unremarkable. There is no evidence of focal mass identified. The pancreas is within normal limits. The right kidney measures 9.1 x 4.7 cm. The left kidney measures 10.4 x 5 cm. There is no evidence of hydronephrosis. There is no evidence of nephrolithiasis. There is no evidence of renal mass. The spleen measures 9.4 cm. The patient is status post cholecystectomy. No evidence of gallbladder wall thickening or pericholecystic fluid. The common bile duct measures 0.6 cm. There is no evidence of ascites. The aorta and IVC are within normal limits. The portal vein is patent with hepatopetal flow IMPRESSION: Status post cholecystectomy. Severe echogenic kidneys consistent with chronic medical renal disease. at 2002 Reported and signed by: Fracisco Anne M.D. CC: Juni Tejeda MD Technologist: CUCA SANDOVAL Trnscb Date/Time: 03/25/2019 (2002) [email or web address] Orig Print D/T: S: 03/25/2019 (2006) Probe: PAGE 1 Signed Report [id number] 19:25:00* Test Item Value Reference Range Comments TROPONIN-I (test code=TROPI) <0.015 ng/mL 0-0.045 COMMENTS TO REVISING CLERK: COLLECT 3 HOURS AFTER PREVIOUS SAMPLEURINALYSIS [id number] 19:01:00* Test Item Value Reference Range Comments UA COLOR (test code=COLU) Light-Yellow YELLOW UA APPEARANCE (test code=APPU) Cloudy CLEAR UA GLUCOSE DIPSTICK (test code=DGLUU) NEGATIVE mg/dL NEGATIVE UA BILIRUBIN DIPSTICK (test code=BILU) NEGATIVE mg/dL NEGATIVE UA KETONE DIPSTICK (test code=KETU) NEGATIVE mg/dL NEGATIVE UA SPECIFIC GRAVITY (test code=SGU) 1.010 1.001-1.035 UA BLOOD DIPSTICK (test code=PELON) 0.03 mg/dL (Trace) mg/dL NEGATIVE UA PH DIPSTICK (test code=SHAHEED) 6.0 5.0-8.0 UA PROTEIN DIPSTICK (test code=PROU) 100 (2+) mg/dL NEGATIVE UA UROBILINIOGEN DIPSTICK (test code=URO) Normal mg/dL NEGATIVE UA NITRITE DIPSTICK (test code=KIKO) NEGATIVE NEGATIVE UA LEUKOCYTE ESTERASE W REFLEX (test code=LEUUR) 500 Ray/uL (3+) Ray/uL NEGATIVE UA WBC (test code=WBCU) 51-100 per HPF 0-5 UA RBC (test code=RBCU) 6-10 #/HPF 0-5 UA WBC CLUMPS (test code=WBCUCL) >10 /HPF NONE UA EPITHELIAL CELLS (test code=EPIU) FEW per HPF FEW UA BACTERIA (test code=BACU) MANY #/HPF NONE UA MUCUS (test code=MUCU) MODERATE #/LPF FEW Urine Source? Clean CatchUR NA,[id number] 19:01:00* Test Item Value Reference Range Comments UR NA,RANDOM (test code=SERA) 119 mmol/L 20-110 Urine Source? Clean CatchUR CREATININE [id number] 19:01:00* Test Item Value Reference Range Comments UR CREATININE RANDOM (test code=CREATU) 37.0 mg/dL 30-125 Urine Source? Clean CatchUR OSMOLALITY [id number] 19:01:00* Test Item Value Reference Range Comments UR OSMOLALITY RANDOM (test code=OSMOU) 397.5 mOsm/kg 48-962 Urine Source? Clean CatchURINALYSIS [id number] 18:59:00* Test Item Value Reference Range Comments UA COLOR (test code=COLU) Light-Yellow YELLOW UA APPEARANCE (test code=APPU) Cloudy CLEAR UA GLUCOSE DIPSTICK (test code=DGLUU) NEGATIVE mg/dL NEGATIVE UA BILIRUBIN DIPSTICK (test code=BILU) NEGATIVE mg/dL NEGATIVE UA KETONE DIPSTICK (test code=KETU) NEGATIVE mg/dL NEGATIVE UA SPECIFIC GRAVITY (test code=SGU) 1.010 1.001-1.035 UA BLOOD DIPSTICK (test code=PELON) 0.03 mg/dL (Trace) mg/dL NEGATIVE UA PH DIPSTICK (test code=SHAHEED) 6.0 5.0-8.0 UA PROTEIN DIPSTICK (test code=PROU) 100 (2+) mg/dL NEGATIVE UA UROBILINIOGEN DIPSTICK (test code=URO) Normal mg/dL NEGATIVE UA NITRITE DIPSTICK (test code=KIKO) NEGATIVE NEGATIVE UA LEUKOCYTE ESTERASE W REFLEX (test code=LEUUR) 500 Ray/uL (3+) Ray/uL NEGATIVE UA WBC (test code=WBCU) 51-100 per HPF 0-5 UA RBC (test code=RBCU) 6-10 #/HPF 0-5 UA WBC CLUMPS (test code=WBCUCL) >10 /HPF NONE UA EPITHELIAL CELLS (test code=EPIU) FEW per HPF FEW UA BACTERIA (test code=BACU) MANY #/HPF NONE UA MUCUS (test code=MUCU) MODERATE #/LPF FEW Urine Source? Clean CatchUR NA,[id number] 18:59:00* Test Item Value Reference Range Comments UR NA,RANDOM (test code=SERA) 119 mmol/L 20-110 Urine Source? Clean CatchUR CREATININE [id number] 18:59:00* Test Item Value Reference Range Comments UR CREATININE RANDOM (test code=CREATU) 37.0 mg/dL 30-125 Urine Source? Clean CatchUR OSMOLALITY [id number] 18:59:00* Test Item Value Reference Range Comments UR OSMOLALITY RANDOM (test code=OSMOU) mOsm/kg 48-962 Urine Source? Clean CatchURINALYSIS [id number] 18:54:00* Test Item Value Reference Range Comments UA COLOR (test code=COLU) Light-Yellow YELLOW UA APPEARANCE (test code=APPU) Cloudy CLEAR UA GLUCOSE DIPSTICK (test code=DGLUU) NEGATIVE mg/dL NEGATIVE UA BILIRUBIN DIPSTICK (test code=BILU) NEGATIVE mg/dL NEGATIVE UA KETONE DIPSTICK (test code=KETU) NEGATIVE mg/dL NEGATIVE UA SPECIFIC GRAVITY (test code=SGU) 1.010 1.001-1.035 UA BLOOD DIPSTICK (test code=PELON) 0.03 mg/dL (Trace) mg/dL NEGATIVE UA PH DIPSTICK (test code=SHAHEED) 6.0 5.0-8.0 UA PROTEIN DIPSTICK (test code=PROU) 100 (2+) mg/dL NEGATIVE UA UROBILINIOGEN DIPSTICK (test code=URO) Normal mg/dL NEGATIVE UA NITRITE DIPSTICK (test code=KIKO) NEGATIVE NEGATIVE UA LEUKOCYTE ESTERASE W REFLEX (test code=LEUUR) 500 Ray/uL (3+) Ray/uL NEGATIVE UA WBC (test code=WBCU) 51-100 per HPF 0-5 UA RBC (test code=RBCU) 6-10 #/HPF 0-5 UA WBC CLUMPS (test code=WBCUCL) >10 /HPF NONE UA EPITHELIAL CELLS (test code=EPIU) FEW per HPF FEW UA BACTERIA (test code=BACU) MANY #/HPF NONE UA MUCUS (test code=MUCU) MODERATE #/LPF FEW Urine Source? Clean CatchUR NA,[id number] 18:54:00* Test Item Value Reference Range Comments UR NA,RANDOM (test code=SERA) 119 mmol/L 20-110 Urine Source? Clean CatchUR CREATININE [id number] 18:54:00* Test Item Value Reference Range Comments UR CREATININE RANDOM (test code=CREATU) mg/dL 30-125 Urine Source? Clean CatchUR OSMOLALITY [id number] 18:54:00* Test Item Value Reference Range Comments UR OSMOLALITY RANDOM (test code=OSMOU) mOsm/kg 48-962 Urine Source? Clean CatchURINALYSIS [id number] 18:51:00* Test Item Value Reference Range Comments UA COLOR (test code=COLU) Light-Yellow YELLOW UA APPEARANCE (test code=APPU) Cloudy CLEAR UA GLUCOSE DIPSTICK (test code=DGLUU) NEGATIVE mg/dL NEGATIVE UA BILIRUBIN DIPSTICK (test code=BILU) NEGATIVE mg/dL NEGATIVE UA KETONE DIPSTICK (test code=KETU) NEGATIVE mg/dL NEGATIVE UA SPECIFIC GRAVITY (test code=SGU) 1.010 1.001-1.035 UA BLOOD DIPSTICK (test code=PELON) 0.03 mg/dL (Trace) mg/dL NEGATIVE UA PH DIPSTICK (test code=SHAHEED) 6.0 5.0-8.0 UA PROTEIN DIPSTICK (test code=PROU) 100 (2+) mg/dL NEGATIVE UA UROBILINIOGEN DIPSTICK (test code=URO) Normal mg/dL NEGATIVE UA NITRITE DIPSTICK (test code=KIKO) NEGATIVE NEGATIVE UA LEUKOCYTE ESTERASE W REFLEX (test code=LEUUR) 500 Ray/uL (3+) Ray/uL NEGATIVE UA WBC (test code=WBCU) 51-100 per HPF 0-5 UA RBC (test code=RBCU) 6-10 #/HPF 0-5 UA WBC CLUMPS (test code=WBCUCL) >10 /HPF NONE UA EPITHELIAL CELLS (test code=EPIU) FEW per HPF FEW UA BACTERIA (test code=BACU) MANY #/HPF NONE UA MUCUS (test code=MUCU) MODERATE #/LPF FEW Urine Source? Clean CatchUR NA,[id number] 18:51:00* Test Item Value Reference Range Comments UR NA,RANDOM (test code=SERA) mmol/L 20-110 Urine Source? Clean CatchUR CREATININE [id number] 18:51:00* Test Item Value Reference Range Comments UR CREATININE RANDOM (test code=CREATU) mg/dL 30-125 Urine Source? Clean CatchUR OSMOLALITY [id number] 18:51:00* Test Item Value Reference Range Comments UR OSMOLALITY RANDOM (test code=OSMOU) mOsm/kg 48-962 Urine Source? Clean CatchURINALYSIS [id number] 18:41:00* Test Item Value Reference Range Comments UA COLOR (test code=COLU) Light-Yellow YELLOW UA APPEARANCE (test code=APPU) Cloudy CLEAR UA GLUCOSE DIPSTICK (test code=DGLUU) NEGATIVE mg/dL NEGATIVE UA BILIRUBIN DIPSTICK (test code=BILU) NEGATIVE mg/dL NEGATIVE UA KETONE DIPSTICK (test code=KETU) NEGATIVE mg/dL NEGATIVE UA SPECIFIC GRAVITY (test code=SGU) 1.010 1.001-1.035 UA BLOOD DIPSTICK (test code=PELON) 0.03 mg/dL (Trace) mg/dL NEGATIVE UA PH DIPSTICK (test code=SHAHEED) 6.0 5.0-8.0 UA PROTEIN DIPSTICK (test code=PROU) 100 (2+) mg/dL NEGATIVE UA UROBILINIOGEN DIPSTICK (test code=URO) Normal mg/dL NEGATIVE UA NITRITE DIPSTICK (test code=KIKO) NEGATIVE NEGATIVE UA LEUKOCYTE ESTERASE W REFLEX (test code=LEUUR) 500 Ray/uL (3+) Ray/uL NEGATIVE UA WBC (test code=WBCU) per HPF 0-5 UA RBC (test code=RBCU) per HPF 0-5 UA EPITHELIAL CELLS (test code=EPIU) per HPF Few UA BACTERIA (test code=BACU) per HPF NONE Urine Source? Clean CatchUR NA,[id number] 18:41:00* Test Item Value Reference Range Comments UR NA,RANDOM (test code=SERA) mmol/L 20-110 Urine Source? Clean CatchUR CREATININE [id number] 18:41:00* Test Item Value Reference Range Comments UR CREATININE RANDOM (test code=CREATU) mg/dL 30-125 Urine Source? Clean CatchUR OSMOLALITY [id number] 18:41:00* Test Item Value Reference Range Comments UR OSMOLALITY RANDOM (test code=OSMOU) mOsm/kg 48-962 Urine Source? Clean [id number] 17:55:00* Test Item Value Reference Range Comments TROPONIN-I (test code=TROPI) <0.015 ng/mL 0-0.045 COMMENTS TO REVISING CLERK: COLLECT 3 HOURS AFTER PREVIOUS [id number] 16:42:00* Test Item Value Reference Range Comments GLUBED (test code=GLUBED) 77 mg/dL 74-106 Performed by certified apple press operator at [facility] BASIC METABOLIC [id number] 12:27:00* Test Item Value Reference Range Comments SODIUM (test code=NA) 145 mmol/L 136-145 POTASSIUM (test code=K) 4.7 mmol/L 3.5-5.1 CHLORIDE (test code=CL) 111.0 mmol/L 98-107 CARBON DIOXIDE (test code=CO2) 27.0 mmol/L 21-32 ANION GAP (test code=GAP) 11.7 10-20 GLUCOSE (test code=GLU) 113 mg/dL 74-106 BLOOD UREA NITROGEN (test code=BUN) 53 mg/dL 7-18 GLOMERULAR FILTRATION RATE (test code=GFR) 17 mL/min >=60 Estimated GFR by using Modified MDRD formula.Chronic kidney disease is defined as either kidney damageor GFR <60 mL/min/1.73 m2 for >3 months. CREATININE (test code=CREAT) 2.70 mg/dL 0.55-1.02 Note change in reference range due to change in reagent. BUN/CREATININE RATIO (test code=BUN/CREA) 19.6 10-20 CALCIUM (test code=CA) 9.3 mg/dL 8.5-10.1 [id number] 12:27:00* Test Item Value Reference Range Comments TROPONIN-I (test code=TROPI) <0.015 ng/mL 0-0.045 BASIC METABOLIC [id number] 12:18:00* Test Item Value Reference Range Comments SODIUM (test code=NA) 145 mmol/L 136-145 POTASSIUM (test code=K) 4.7 mmol/L 3.5-5.1 CHLORIDE (test code=CL) 111.0 mmol/L 98-107 CARBON DIOXIDE (test code=CO2) mmol/L 21-32 ANION GAP (test code=GAP) 10-20 GLUCOSE (test code=GLU) mg/dL 74-106 BLOOD UREA NITROGEN (test code=BUN) mg/dL 7-18 GLOMERULAR FILTRATION RATE (test code=GFR) mL/min >=60 CREATININE (test code=CREAT) mg/dL 0.55-1.02 BUN/CREATININE RATIO (test code=BUN/CREA) 10-20 CALCIUM (test code=CA) mg/dL 8.5-10.1 [id number] 12:18:00* Test Item Value Reference Range Comments TROPONIN-I (test code=TROPI) ng/mL 0-0.045 - XR CHEST 1 [id number] 12:10:00 FAX: Bola Dee MD [phone] [place]: B St: REG Name: ANGEL ROTH [facility] : [birth year] Age/S: 78/F [address] Unit #: [id number] Loc: EULALIO Pena [address] Phys: Bola Dee MD Acct: [id number] Dis Date: Status: REG ER PHONE #: [phone] Exam Date: 03/25/2019 1151 FAX #: [phone] Reason: CHEST PAIN EXAMS: CPT CODE: [id number] XR CHEST 1 V [id number] REASON FOR EXAM: CHEST PAIN Exam Order Date: 03/25/2019 11:12 AM Ordering M.D.: Bola Dee MD PROCEDURE: - XR CHEST 1 V LAMAR RISON: None FINDINGS: The lungs are clear. There is no pl eural effusion or pneumothorax. Pulmonary vascularity is within normal mukherjee its. Cardiomediastinal silhouette is normal in size for technique. Aorta is tortuous with atherosclerosis. There are degenerat joyce changes in the spine. There is been a prior right shoulder arthroplast y. No hardware loosening. The visualized upper abdomen is within n ormal limits. IMPRESSION: No acute cardiopulmona ry process. at 1210 Reported and signed by: Mikhail Mills MD CC: Bola Dee MD Technologist: Juan Dumont RT(R) Trnscrd Date/Time/By: 03/25/2019 (4120) : By: [email or web address] Orig Print D/T: S: 03/25/2019 (3676) PAGE 1 Signed Report CBC W/O [id number] 12:01:00* Test Item Value Reference Range Comments WHITE BLOOD CELL (test code=WBC) 6.6 K/mm3 4.5-12.5 RED BLOOD CELL (test code=RBC) 3.91 mill/mm3 3.7-5.2 HEMOGLOBIN (test code=HGB) 11.6 gram/dL 11.5-15.5 HEMATOCRIT (test code=HCT) 36.6 % 36.0-46.0 MEAN CELL VOLUME (test code=MCV) 93.6 fL 80-98 MEAN CELL HGB (test code=MCH) 29.7 picogram 27.0-33.0 MEAN CELL HGB CONCETRATION (test code=MCHC) 31.7 gram/dL 33.0-36.0 RED CELL DISTRIBUTION WIDTH (test code=RDW) 13.6 % 11.6-16.2 PLATELET COUNT (test code=PLT) 158 K/mm3 150-450 MEAN PLATELET VOLUME (test code=MPV) 10.5 fL 6.7-11.0
[2019-09-18 16:10] VITALS: BP 148/84
--- NOTE | 2019-09-18 16:15 | NUR ---
PATIENT RECEIVED FROM ER PER STRETCHER. ALERT AND VERBALLY RESPONSIVE. SKIN WARM AND DRY TO TOUCH, RESPIRATION EVEN AND UNLABORED, ABDOMEN SOFT, LARGE AND ROUND. TELEMETRY BOX [address]. REDNESS TO LOWER EXTREMITIES. BED IN LOWER POSITION AND LOCKED. CALL LIGHT AT REACH, INSTRUCTED TO CALL FOR ASSISTANCE NEEDED WITH RETURN DEMONSTRATION.
[2019-09-18 16:24] VITALS: BP 148/84
[2019-09-18 20:00] VITALS: BP 156/67
[2019-09-19] VITALS (8 sets, daily range): BP systolic 130–157; BP diastolic 58–72
[2019-09-19 06:18] LABS: BASOPHILS # (AUTO) 0.1 (0.0-0.1); BASOPHILS % 1.6 % (0.0-1.0); EOSINOPHILS # (AUTO) 0.3 (0.0-0.4); EOSINOPHILS % 4.2 % (0.0-6.0); HEMATOCRIT 35.9 % (34.2-44.1); HEMOGLOBIN 11.5 g/dL (12.0-16.0); LYMPHOCYTES # (AUTO) 2.1 (1.0-3.2); LYMPHOCYTES % 34.4 % (18.0-39.1); MEAN CORPUSCULAR HEMOGLOBIN 28.8 pg (28-32); MEAN CORPUSCULAR VOLUME 89.8 fL (81-99); MONOCYTES # (AUTO) 0.6 (0.2-0.8); MONOCYTES % 8.9 % (4.4-11.3); NEUTROPHILS # (AUTO) 3.1 (2.1-6.9); NEUTROPHILS % 50.6 % (38.7-80.0); PLATELET COUNT 161 x10e3/uL (140-360); RED CELL DISTRIBUTION WIDTH 13.8 % (11.7-14.4)
[2019-09-19 06:22] LABS: ALBUMIN 2.7 g/dL (3.5-5.0); ALBUMIN/GLOBULIN RATIO 0.8 (0.8-2.0); CALCIUM 7.8 mg/dL (8.4-10.2); CREATININE, SERUM 3.19 mg/dL (0.57-1.11)
--- NOTE | 2019-09-19 07:10 | NUR ---
Bedside report and rounds completed with on coming nurse. Patient in bed with call light within reach. No issues or concerns noted.
--- NOTE | 2019-09-19 07:16 | NUR ---
PATIENT IN BED RESTING WITH NO S/S OF DISCOMFORT. TELEMETRY BOX IN PLACE. BED IN LOWER POSITION, CALL LIGHT AT REACH.
--- NOTE | 2019-09-19 09:40 | NUR ---
Pt. expressed no spiritual or emotional concerns at this time. Prompt Care Rn provided hospitality and information on how to reach locomotive engineer diesel, if needed. Pt expressed appreciation for visit. No need to follow at this time. KELTON SANTIAGO Prompt Care Rn Spiritual Care Department O: [phone]
[2019-09-19] MEDS ORDERED: HYDROCODONE/APAP 5MG-325MG TAB PO PRN (10:00)
[2019-09-19] MEDS ORDERED: ACETAMINOPHEN 325 MG TAB PO PRN (12:15)
--- NOTE | 2019-09-19 12:22 | NUR ---
MD IN TO SEE PATIENT, NEW ORDERS RECEIVED.
[2019-09-19] MEDS ORDERED: GABAPENTIN 300 MG CAP PO SCH (15:00)
--- NOTE | 2019-09-19 15:31 | Diagnostic Imaging Report ---
EXAM: Renal Ultrasound INDICATION: Acute kidney injury COMPARISON: None TECHNIQUE: Transverse and longitudinal images of the kidneys and bladder were obtained. FINDINGS: Right Kidney: Length: 11.3 cm Appearance: Increased echogenicity. Collecting system: No hydronephrosis Stones: None Cyst/Mass: None Left Kidney: Length: 9.8 cm Appearance: Increased echogenicity. Collecting system: No hydronephrosis Stones: None Cyst/Mass: None Bladder: No mass or calculi. Ureteral jets not visualized. Prevoid volume estimate of 367cc. IMPRESSION: No hydronephrosis or renal calculi. Increased right and left renal parenchymal echogenicity, compatible with medical renal disease. Signed by: Sierra Gamboa MD on 09/19/2019 3:28 PM
--- NOTE | 2019-09-19 16:58 | NUR ---
PATIENT AMBULATING IN HALLWAY WITH PHYSICAL THERAPY, NO DISTRESS NOTED. WILL CONTINUE TO MONITOR.
[2019-09-19] MEDS: SODIUM CHLORIDE 0.9% 1000ML 1,000 ML IV SCH (16:59)
[2019-09-19] MEDS: RIVASTIGMINE TARTRATE 1.5 MG CAP PO SCH (17:34)
--- NOTE | 2019-09-19 19:00 | NUR ---
RECEIVED PATIENT IN BEDSIDE SHIFT REPORT. PATIENT RESTING IN BED AT THIS TIME, NO PAIN REPORTED. NO S&S OF DISTRESS NOTED. BED LOCKED IN LOWEST POSITION, SIDE RAILS UPX2, CALL LIGHT IN REACH.
[2019-09-19 19:01] LABS: CREATININE,URINE RANDOM 45.78 mg/dL (47-110)
[2019-09-19 20:00] LABS: TOTAL PROTEIN, URINE 404.6 mg/dL (1-14)
--- NOTE | 2019-09-19 20:30 | Consultation ---
DATE OF CONSULTATION: 09/19/2019 HISTORY OF PRESENT ILLNESS: This is a pleasant 79-year-old female, pleasantly confused. Has a history of dementia. She does not know why she is here. She states she has a history of stage IV kidney failure, but then she states "there is nothing wrong with my kidney," so any ways, it was a pleasant discussion with her, but she is oriented to her name, but other than that, she also knows that she lives at [facility]. She knows she is at [facility]. Does not know the year. She is otherwise comfortable lying supine, in no apparent distress. She is allergic to penicillin and sulfa. She is currently on sertraline 100 mg p.o. daily, Exelon 6 mg p.o. b.i.d., pantoprazole, ondansetron, insulin, hydrocodone, hydralazine, gabapentin 300 mg p.o. t.i.d. She is on aspirin 81 mg daily, atorvastatin 10 mg at bedtime. She is otherwise lying supine, in no apparent distress. LABORATORY DATA: Labs show white count is 6.16, hemoglobin is 11.5. She has sodium 143, potassium 4, bicarb 24. BUN 47, creatinine 3.1, calcium 7.8. Urinalysis shows specific gravity of 10/25. Urine protein more than 300. RBCs 0 to 5. WBCs 0 to 5. SOCIAL HISTORY: care home patient, who walks with a walker. Does not smoke or drink. FAMILY HISTORY: Please see chart. PHYSICAL EXAMINATION: GENERAL: The patient is awake, alert, oriented x2, lying supine, in no apparent distress. LUNGS: Relatively clear. Occasional rales right base. HEART: S1 and S2 audible. ABDOMEN: Soft, nontender. No apparent visceromegaly. LOWER EXTREMITY: No edema. ALLERGIES: TO PENICILLIN AND SULFA MENTIONED. MEDICATIONS: As mentioned above. IMPRESSION AND PLAN: [id number] kidney failure, most likely with a fairly concentrated urine. I will obtain kidney ultrasound clinic records, must rule out element of dehydration. The patient does not report nausea or vomiting, but she has no evidence of congestive heart failure or third spacing. Chest x-ray report noted, a fairly confusing report. Nevertheless, I will try to pull up the emergency. In the meantime, we will discontinue gabapentin. Start IV normal saline. Obtain stat uric acid level. I will also obtain urine sodium random and urine creatinine random. Calculate fraction excretion of sodium. Discussed with bedside RN. The patient has multiple medical issues including psychosis, depression, dementia, [id number] kidney failure, hypertension, and diabetes. Please see orders. MD MAEGAN Monge/AKSHAT /[id number]
[2019-09-19] MEDS: ONDANSETRON HCL INJ 2MG/ML 2ML 2 MG/ML VIAL IV PRN (21:10)
--- NOTE | 2019-09-19 21:10 | NUR ---
PATIENT VOMITED ABOUT 200ML, ZOFRAN ADMINISTERED. REMINDED PATIENT TO SIT UP ON BEDSIDE TO AVOID ASPIRATION, PATIENT VERBALIZED UNDERSTANDING. WILL REASSESS AND MONITOR CLOSELY.
[2019-09-19] MEDS: ATORVASTATIN 10 MG TAB PO SCH (21:40)
[2019-09-19] MEDS: INSULIN GLARGINE 100 UNITS/ML VIAL SQ SCH (21:40)
[2019-09-20] VITALS (7 sets, daily range): BP systolic 130–153; BP diastolic 54–84
[2019-09-20] MEDS: SODIUM CHLORIDE 0.9% 1000ML 1,000 ML IV SCH ×2 (03:20→16:25)
[2019-09-20 06:04] LABS: BASOPHILS # (AUTO) 0.1 (0.0-0.1); BASOPHILS % 1.2 % (0.0-1.0); EOSINOPHILS # (AUTO) 0.2 (0.0-0.4); EOSINOPHILS % 2.9 % (0.0-6.0); HEMATOCRIT 37.9 % (34.2-44.1); LYMPHOCYTES % 30.2 % (18.0-39.1); MEAN CORPUSCULAR HEMOGLOBIN 28.7 pg (28-32); MEAN CORPUSCULAR HGB CONC 31.7 g/dL (31-35); MEAN CORPUSCULAR VOLUME 90.7 fL (81-99); MONOCYTES # (AUTO) 0.5 (0.2-0.8); MONOCYTES % 7.3 % (4.4-11.3); NEUTROPHILS # (AUTO) 3.8 (2.1-6.9); NEUTROPHILS % 58.1 % (38.7-80.0); PLATELET COUNT 162 x10e3/uL (140-360); RED BLOOD COUNT 4.18 x10e6/uL (3.6-5.1); RED CELL DISTRIBUTION WIDTH 13.9 % (11.7-14.4)
[2019-09-20 06:09] LABS: ALBUMIN 2.8 g/dL (3.5-5.0); ALBUMIN/GLOBULIN RATIO 0.8 (0.8-2.0); ANION GAP 10.2 mmol/L (8-16); CALCIUM 8.4 mg/dL (8.4-10.2); CREATININE, SERUM 3.08 mg/dL (0.57-1.11); POTASSIUM 4.2 mmol/L (3.5-5.1)
[2019-09-20 06:39] LABS: MAGNESIUM 1.7 MG/DL (1.3-2.1)
[2019-09-20 06:50] LABS: THYROID STIMULATING HORMONE 2.241 uIU/mL (0.350-4.940)
--- NOTE | 2019-09-20 07:00 | NUR ---
Received bedside shift report from off going nurse. Patient in stable condition, no s/s of distress noted. No complainants of pain noted. Telemetry in place and working. Bed in lowest position and locked. Call light within reach.
[2019-09-20] MEDS: ASPIRIN 81 MG CHEW TAB PO SCH (09:12)
[2019-09-20] MEDS: PANTOPRAZOLE SOD 40 MG TABEC PO SCH (09:12)
[2019-09-20] MEDS: RIVASTIGMINE TARTRATE 1.5 MG CAP PO SCH ×2 (09:12→16:37)
[2019-09-20] MEDS: SERTRALINE HCL 100 MG TAB PO SCH (09:13)
[2019-09-20] MEDS: ONDANSETRON HCL INJ 2MG/ML 2ML 2 MG/ML VIAL IV PRN ×2 (12:26→19:05)
[2019-09-20 13:58] LABS: AMYLASE 59 U/L (25-125); LIPASE 59 U/L (8-78)
[2019-09-20 13:59] LABS: ALBUMIN 2.7 g/dL (3.5-5.0); BILIRUBIN,DIRECT 0.1 mg/dL (0.0-0.5)
[2019-09-20] MEDS ORDERED: LACTULOSE SYRUP 20 GM/30 ML UDC PO ONE (14:00)
--- NOTE | 2019-09-20 15:14 | Diagnostic Imaging Report ---
EXAM: US ABDOMEN COMPLETE DATE: 09/20/2019 12:00 AM INDICATION: Nausea, vomiting, acute kidney injury COMPARISON: Renal ultrasound from 09/19/2019 FINDINGS: The pancreas is partially obscured by prominent adjacent bowel gas. The visualized portion appears unremarkable. The liver is normal in size measuring 15.4 cm in length. Hepatic echogenicity is within normal limits. No focal hepatic abnormalities identified. The main portal vein is patent with antegrade flow and diameter of 1.0 cm, within normal limits. The gallbladder is surgically absent. There is no biliary ductal dilatation. The common bile duct measures 3 mm. Sonographic Barfield's sign is negative. The spleen is normal in size measuring 11.0 cm in length and demonstrates an unremarkable sonographic appearance. The kidneys are normal in size measuring 10.9 cm in length on the right and 10.9 cm in length on the left. Cortical echogenicity is increased bilaterally. There is no evidence for solid renal mass, hydronephrosis, or shadowing calculi. The visual as portions the IVC are unremarkable. The aorta is not well-visualized secondary to prominent overlying bowel gas. There is no ascites visualized. IMPRESSION: Increased bilateral renal cortical echogenicity which can be seen in the setting of medical renal disease. Status post cholecystectomy. Otherwise, unremarkable abdominal ultrasound examination noting limited evaluation of midline structures secondary to prominent overlying bowel gas. Signed by: Dr. Roldan Katz MD on 09/20/2019 3:11 PM
--- NOTE | 2019-09-20 19:08 | NUR ---
Completed bedside shift report and rounds with oncoming nurse. Patient in stable condition, no s/s of distress noted. No complainants of pain noted. Vomiting Zofran given, No coming nurse aware of vomiting. Telemetry in place and working. Bed in lowest position and locked. Call light within reach. All personal items within reach.
--- NOTE | 2019-09-20 19:13 | NUR ---
Bed alarm in place and working.
--- NOTE | 2019-09-20 19:24 | NUR ---
Received bedside report from day nurse. Patient awake and resting in bed, c/o nausea and vomiting. Medicated with PRN Zofran. Bed locked and in low position, alarm on, call light placed within reach. Patient instructed to call for assistance if needed, verbalized understanding. All safety measures in place. Will continue to monitor.
[2019-09-20] MEDS: INSULIN GLARGINE 100 UNITS/ML VIAL SQ SCH (21:04)
[2019-09-20] MEDS: ATORVASTATIN 10 MG TAB PO SCH (21:04)
[2019-09-20] MEDS ORDERED: BISACODYL 10 MG SUPP PR ONE (22:15)
--- NOTE | 2019-09-20 23:01 | Diagnostic Imaging Report ---
EXAM: Abdomen Radiograph 1 View INDICATION: ^N/V, abdominal distention COMPARISON: None FINDINGS: No lines or tubes. Normal volume of stool in the colon. No dilated loops of small bowel. Moderate colonic stool burden. No abnormal abdominal calcifications.. No abnormal soft tissue masses. No pneumoperitoneum. No acute osseous abnormality. Extensive degenerative changes in the spine hips and pelvis. Healing right proximal femoral fracture with fixation hardware in place. Cholecystectomy clips. IMPRESSION: Moderate colonic stool burden suggestive of constipation. Signed by: Favio Ramos DO on 09/20/2019 10:58 PM
[2019-09-21] VITALS (10 sets, daily range): BP systolic 137–166; BP diastolic 65–87
--- NOTE | 2019-09-21 00:23 | NUR ---
Dr. Zendejas here to see patient. Plans to do EGD today. Received orders to obtain informed consent and to keep patient NPO.
--- NOTE | 2019-09-21 00:28 | NUR ---
Patient BP elevated with c/o nausea and vomiting. Emesis bags provided. All safety measures in place. Will continue to monitor and administer PRN Zofran as needed.
[2019-09-21] MEDS: SODIUM CHLORIDE 0.9% 1000ML 1,000 ML IV SCH ×3 (02:41→16:31)
[2019-09-21] MEDS: HYDRALAZINE HCL 20 MG/ML VIAL IV PRN (05:15)
[2019-09-21 06:05] LABS: ALBUMIN/GLOBULIN RATIO 0.8 (0.8-2.0); CALCIUM 9.3 mg/dL (8.4-10.2); CREATININE, SERUM 3.06 mg/dL (0.57-1.11)
--- NOTE | 2019-09-21 07:04 | NUR ---
Bedside report given to day nurse. Patient resting in bed, no s/s of distress at this time. All safety measures in place.
[2019-09-21] MEDS: RIVASTIGMINE TARTRATE 1.5 MG CAP PO SCH ×2 (08:00→17:00)
[2019-09-21] MEDS: SERTRALINE HCL 100 MG TAB PO SCH (09:00)
[2019-09-21] MEDS: ASPIRIN 81 MG CHEW TAB PO SCH (09:00)
[2019-09-21] MEDS: PANTOPRAZOLE SOD 40 MG TABEC PO SCH (09:00)
--- NOTE | 2019-09-21 10:30 | NUR ---
1030 PT RESTING IN BED, NO SIGN OF ACUTE DISTRESS NOTED, AWAITING PROCEDURE, SPOKE TO FAMILY MEMBER ON THE PHONE
--- NOTE | 2019-09-21 13:15 | NUR ---
1315 pt transferred to or via stretcher by OR nurse, no sign of acute distress noted
--- NOTE | 2019-09-21 15:25 | NUR ---
1525 REC'D REPORT FROM PACU, PT TRANSFERRED TO ROOM 111, PT MAY RESUME PREOP ORDERS
[2019-09-21] MEDS: PANTOPRAZOLE 40 MG 10ML VIAL IV SCH (16:30)
[2019-09-21] MEDS: ONDANSETRON HCL INJ 2MG/ML 2ML 2 MG/ML VIAL IV PRN (16:31)
--- NOTE | 2019-09-21 17:28 | Operative Report ---
DATE OF PROCEDURE: 09/21/2019 SURGEON: Chadwick Zendejas MD PROCEDURE: Esophagogastroduodenoscopy with biopsies. ADDITIONAL REFERRING PHYSICIANS: 1. Everardo Kelsey MD. 2. Sandra Henriquez MD. INDICATIONS FOR EGD: Upper abdominal pain, recurrent nausea, vomiting, black stools. MEDICATIONS: The patient was done under MAC, please see anesthesiologist's note. PROCEDURE IN DETAIL: With the patient in left lateral decubitus position, the flexible fiberoptic Olympus gastroscope was introduced into the esophagus under direct visualization without any difficulty. There was some patchy erythema noted in distal esophagus. The scope was then advanced with ease into the stomach traversing a small sliding hiatal hernia. Mucosa overlying the antrum and the body revealed some patchy erythema and low-grade to moderate edema, and biopsies were obtained and sent to stain for H pylori. The pylorus was somewhat stenotic, but it opened up nicely with repetitive intubation with the scope which was advanced all the way to the second portion of the duodenum. The scope was then withdrawn slowly. Mucosa overlying the proximal and second portion appeared to be within normal limits. Multiple minute ulcers were noted in the duodenal bulb without active bleeding. The scope was then withdrawn back into stomach and retroflexed. Mucosa overlying the fundus and cardia appeared to be within normal limits. The scope was then straightened out, it was subsequently withdrawn. The patient tolerated the procedure well. IMPRESSION: 1. Distal esophagitis, mild. 2. Small sliding hiatal hernia. 3. Gastritis, biopsied, biopsies sent to stain for Helicobacter pylori. 4. Duodenal ulcers, multiple, minute without active bleeding. PLAN: Follow up histology. Augment current anti-PD therapy to Protonix 40 mg IV b.i.d. Chadwick Zendejas MD [facility] [place]/MODL /[id number] cc: MD Everardo Monge MD Dilipkumar Patel, MD
--- NOTE | 2019-09-21 19:15 | NUR ---
191 BEDSIDE REPORT AND CARE TO ON COMING NURSE, NO SIGN OF ACUTE DISTRESS NOTED
--- NOTE | 2019-09-21 19:18 | NUR ---
received report from day nurse. patient is resting comfortably in the bed. bed is in the lowest position and call meza is within reach. denies pain or discomfort at this time. will continue to monitor patient.
[2019-09-21] MEDS ORDERED: LIDOCAINE HCL 2% LOCAL INJ 5 ML SDV VIAL INJ ONE (19:29)
[2019-09-21] MEDS ORDERED: PROPOFOL IV EMULSION 10 MG/ML 20 ML VIAL ONE (19:29)
[2019-09-21] MEDS: ATORVASTATIN 10 MG TAB PO SCH (20:47)
[2019-09-21] MEDS: INSULIN GLARGINE 100 UNITS/ML VIAL SQ SCH (20:48)
[2019-09-22] VITALS (8 sets, daily range): BP systolic 140–182; BP diastolic 63–83
[2019-09-22] MEDS: SODIUM CHLORIDE 0.9% 1000ML 1,000 ML IV SCH ×2 (02:15→10:27)
--- NOTE | 2019-09-22 07:00 | NUR ---
RECEIVED PATIENT AWAKE RESTING IN BED NO S/S OF DISTRESS. BED LOW, WHEELS LOCKED, SIDE RAILS X2. CALL LIGHT IN REACH WILL CONTINUE TO MONITOR PATIENT.
[2019-09-22] MEDS: ASPIRIN 81 MG CHEW TAB PO SCH (08:44)
[2019-09-22] MEDS: PANTOPRAZOLE 40 MG 10ML VIAL IV SCH ×2 (08:44→17:11)
[2019-09-22] MEDS: SERTRALINE HCL 100 MG TAB PO SCH (08:44)
[2019-09-22] MEDS: HYDRALAZINE HCL 20 MG/ML VIAL IV PRN ×2 (08:44→17:11)
[2019-09-22] MEDS: RIVASTIGMINE TARTRATE 1.5 MG CAP PO SCH ×2 (08:44→17:11)
--- NOTE | 2019-09-22 11:15 | Progress Note ---
DATE: 09/22/2019 Nephrology Followup Note SUBJECTIVE: The patient did not appear to be in any acute distress and denied any nausea, vomiting, chest pain, or shortness of breath. I's and O's were not recorded accurately. OBJECTIVE: VITAL SIGNS: Blood pressure 182/72, respirations 20, heart rate 73, temperature 99. HEENT: Head was atraumatic, normocephalic. EXTREMITIES: No edema. PROCESS SPECIALIST: She was awake and alert and oriented x3. LABORATORY DATA: Yesterday, creatinine was 3.06 stable with stable electrolytes. No labs from today. IMPRESSION: Chronic kidney disease, stage 4 with stable serum creatinine around 3 mg/dL. No evidence of volume overload. PLAN: Continue present treatment, but decrease IV fluids to 40 mL an hour. No acute indication for dialysis. Further recommendations to follow. Selma Gann MD [facility]/AKSHAT /[id number]
[2019-09-22] MEDS: ONDANSETRON HCL INJ 2MG/ML 2ML 2 MG/ML VIAL IV PRN (18:25)
--- NOTE | 2019-09-22 19:19 | NUR ---
BEDSIDE SHIFT REPORT RECEIVED FROM DAY RN. PT ALERT AND ORIENTED X3. RESPIRATIONS ARE REGULAR AND UNLABORED/ ON RA. PT SITTING UP IN BED COUGHING INTERMITENTLY. PT C/O OF NAUSEA EARLIER AND ZOFRAN HELPING. TELE ON. NS INFUSING AT 50 ML/HR . PT AMBULATING TO BATHROOM WITH ONE ASSIST.LOWER LEGS DARKER COLOR HX PVD NOTED. CALL LIGHT WITHIN REACH. BED IN LOW POSITION.
[2019-09-22] MEDS ORDERED: METOCLOPRAMIDE HCL 10 MG/2ML VIAL IV ONE (20:15)
--- NOTE | 2019-09-22 20:33 | NUR ---
DR FELIX HERE TO SEE PT. NEW ORDER RECEIVED FOR REGLAN NOW AND Q 6 HRS AC AND HS. PT COUGHING LESS AND NAUSEA IMPROVING.
[2019-09-22] MEDS: INSULIN GLARGINE 100 UNITS/ML VIAL SQ SCH (21:00)
[2019-09-22] MEDS: ATORVASTATIN 10 MG TAB PO SCH (21:46)
[2019-09-23] VITALS (8 sets, daily range): BP systolic 142–183; BP diastolic 65–77
[2019-09-23] MEDS: METOCLOPRAMIDE HCL 10 MG/2ML VIAL IV SCH ×6 (00:27→21:43)
[2019-09-23 06:38] LABS: ANION GAP 12.8 mmol/L (8-16); CALCIUM 8.5 mg/dL (8.4-10.2); CREATININE, SERUM 2.83 mg/dL (0.57-1.11); MAGNESIUM 1.7 MG/DL (1.3-2.1); PHOSPHORUS 3.6 MG/DL (2.3-4.7); POTASSIUM 3.8 mmol/L (3.5-5.1)
[2019-09-23 06:44] LABS: BASOPHILS # (AUTO) 0.1 (0.0-0.1); BASOPHILS % 1.4 % (0.0-1.0); EOSINOPHILS % 0.3 % (0.0-6.0); HEMATOCRIT 36.4 % (34.2-44.1); HEMOGLOBIN 11.7 g/dL (12.0-16.0); LYMPHOCYTES # (AUTO) 1.7 (1.0-3.2); LYMPHOCYTES % 22.3 % (18.0-39.1); MEAN CORPUSCULAR HGB CONC 32.1 g/dL (31-35); MEAN CORPUSCULAR VOLUME 90.1 fL (81-99); MONOCYTES # (AUTO) 0.5 (0.2-0.8); MONOCYTES % 6.4 % (4.4-11.3); NEUTROPHILS # (AUTO) 5.4 (2.1-6.9); PLATELET COUNT 175 x10e3/uL (140-360); RED BLOOD COUNT 4.04 x10e6/uL (3.6-5.1); RED CELL DISTRIBUTION WIDTH 14.2 % (11.7-14.4)
--- NOTE | 2019-09-23 07:00 | NUR ---
RECEIVED PATIENT AWAKE RESTING IN BED NO S/S OF DISTRESS. BED LOW, WHEELS LOCKED, SIDE RAILS X2. CALL LIGHT IN REACH WILL CONTINUE TO MONITOR PATIENT.
[2019-09-23] MEDS: RIVASTIGMINE TARTRATE 1.5 MG CAP PO SCH ×2 (08:16→16:18)
[2019-09-23] MEDS: PANTOPRAZOLE 40 MG 10ML VIAL IV SCH ×2 (08:16→16:18)
[2019-09-23] MEDS: SODIUM CHLORIDE 0.9% 1000ML 1,000 ML IV SCH (08:16)
[2019-09-23] MEDS: SERTRALINE HCL 100 MG TAB PO SCH (08:16)
[2019-09-23] MEDS: ASPIRIN 81 MG CHEW TAB PO SCH (08:16)
[2019-09-23] MEDS: HYDRALAZINE HCL 20 MG/ML VIAL IV PRN (16:22)
[2019-09-23] MEDS ORDERED: BISACODYL 10 MG SUPP PR PRN (17:15)
[2019-09-23] MEDS ORDERED: BISACODYL 10 MG SUPP PR NR (17:30)
--- NOTE | 2019-09-23 19:20 | NUR ---
BEDSIDE SHIFT REPORT RECEIVED FROM DAY RN. PT IS ALERT AND ORIENTED X3. HAIR COMBED AND PLAIDED. RESPIRATIONS ARE EVEN AND UNLABORED. TELE ON. NS INFUSING AT 50 ML/HR 20 G LEFT WRIST SITE HEALTHY. PT AMBULATE TO BATHROOM WITH ONE ASSIST USING WALKER. PT HAD BM BUT CONTINUES TO HAVE POOR APPETITE. DR FELIX AWARE. CALL LIGHT WITHIN REACH. BED IN LOW POSITION.
[2019-09-23] MEDS: INSULIN GLARGINE 100 UNITS/ML VIAL SQ SCH (21:00)
[2019-09-23] MEDS: ATORVASTATIN 10 MG TAB PO SCH (21:44)
[2019-09-24] VITALS (9 sets, daily range): BP systolic 135–181; BP diastolic 63–88
[2019-09-24] MEDS: SODIUM CHLORIDE 0.9% 1000ML 1,000 ML IV SCH ×2 (04:03→23:42)
[2019-09-24 05:46] LABS: BASOPHILS # (AUTO) 0.1 (0.0-0.1); EOSINOPHILS % 0.6 % (0.0-6.0); HEMATOCRIT 36.6 % (34.2-44.1); HEMOGLOBIN 11.6 g/dL (12.0-16.0); LYMPHOCYTES # (AUTO) 1.6 (1.0-3.2); LYMPHOCYTES % 22.3 % (18.0-39.1); MEAN CORPUSCULAR HEMOGLOBIN 28.5 pg (28-32); MEAN CORPUSCULAR HGB CONC 31.7 g/dL (31-35); MEAN CORPUSCULAR VOLUME 89.9 fL (81-99); MONOCYTES # (AUTO) 0.6 (0.2-0.8); MONOCYTES % 8.5 % (4.4-11.3); NEUTROPHILS # (AUTO) 4.7 (2.1-6.9); NEUTROPHILS % 66.5 % (38.7-80.0); PLATELET COUNT 162 x10e3/uL (140-360); RED BLOOD COUNT 4.07 x10e6/uL (3.6-5.1); RED CELL DISTRIBUTION WIDTH 14.3 % (11.7-14.4)
[2019-09-24 06:10] LABS: ANION GAP 11.9 mmol/L (8-16); CALCIUM 8.8 mg/dL (8.4-10.2); CREATININE, SERUM 2.82 mg/dL (0.57-1.11); POTASSIUM 3.9 mmol/L (3.5-5.1)
--- NOTE | 2019-09-24 07:15 | NUR ---
bedside change of shift report received from MOHIT Clark. pt awake, alert, in stable condition. will continue to monitor.
[2019-09-24] MEDS: ONDANSETRON HCL INJ 2MG/ML 2ML 2 MG/ML VIAL IV SCH ×4 (07:38→21:38)
[2019-09-24] MEDS: METOCLOPRAMIDE HCL 10 MG/2ML VIAL IV SCH ×4 (07:38→21:38)
[2019-09-24] MEDS: HYDRALAZINE HCL 20 MG/ML VIAL IV PRN (08:40)
[2019-09-24] MEDS: PANTOPRAZOLE 40 MG 10ML VIAL IV SCH ×2 (08:41→18:06)
[2019-09-24] MEDS: ASPIRIN 81 MG CHEW TAB PO SCH (08:42)
[2019-09-24] MEDS: RIVASTIGMINE TARTRATE 1.5 MG CAP PO SCH ×2 (08:42→18:02)
[2019-09-24] MEDS: SERTRALINE HCL 100 MG TAB PO SCH (08:42)
--- NOTE | 2019-09-24 14:30 | NUR ---
Nutrition Intervention Note RD Recommendation(s) for Physician: - Continue current diet - Recommend Nepro once daily for adequacy Plan of Care: RD following, monitoring for tolerance and adequacy Nutrition reason for involvement: LOS RD Assessment 09/23: 79 YOF admitted for acute on chronic renal failure. Pt seen today for LOS. Pt sleeping at time of visit, did not respond to greeting upon entry to room and no family at bedside. Pt appears well nourished, noted 75% intake today and no meals consumed yesterday and 100% intake on Tuesday. No GI distress recorded. Chart reviewed, per MD notes no acute indication for dialysis. Will continue to monitor. Principal Problems/Diagnoses: acute on chronic renal failure PMH: no H&P in [employer], DM- currently on insulin GI: LBM 09/20 x 2 Skin: healing wound to 3rd toe, no PU Labs: 09/23: Na 141, K 3.9, BUN 26, Cr 2.82, Gluc 120 Meds: protonix, zofran, reglan, lipitor, lantus, dulcoax prn Ht: 65 in Wt: 223.9 lb BMI: 37.3 kg/m2 IBW: 125 lb Malnutrition Evaluation (09/24/19) The patient does not meet criteria for a specified degree of malnutrition at this time. Will re-evaluate at follow-up as appropriate. Energy intake: Decreased intake x 1 day, does not meet criteria Weight loss: TAVO, unable to obtain UBW from pt Fat loss: none, ample skinfold thickness Muscle loss: Mild, Moderate, Severe, unable to evaluate Supporting Evidence: Fluid accumulation: none observed Functional Status: not assessed Nutrition Prescription (Diet Order): 1800 ADA Estimated Nutritional Needs: calories/day (22-25 kcal/kg IBW) g protein/day (1.5-2 g pro/kg IBW) Diet Adequacy: Meeting calorie needs, Meeting protein needs Diet Tolerance: tolerating po Diet Education Needs Assessment: Diet education not indicated at this time. Nutrition Care Level: low Nutrition Diagnosis: Fluctuating po intake related to current medical condition as evidenced by elevated renal indices. Goal: Patient will meet 75-100% of estimated needs by follow up Progress: N/A Interventions: -Mineral modified diet, Commercial beverage Monitoring/Evaluation: -Total energy intake, Total protein intake, Modified diet, Liquid supplement Signed: Stacey Bryan RD, LD, [facility]
--- NOTE | 2019-09-24 16:19 | NUR ---
FAXED CLINICALS TO [phone], WILL NEED COVID FORM SIGNED AND FAXED TO FACILITY. PRINTED RTF AND PUT WITH PACKET FOR COMPLETION OF TRANSFER WHEN GET ORDER.
[2019-09-24] MEDS: AMLODIPINE BESYLATE 10 MG TAB PO SCH (18:01)
[2019-09-24] MEDS: INSULIN GLARGINE 100 UNITS/ML VIAL SQ SCH (21:00)
[2019-09-24] MEDS: ATORVASTATIN 10 MG TAB PO SCH (21:38)
[2019-09-25 05:07] VITALS: BP 139/63
[2019-09-25 08:15] VITALS: BP 152/59
[2019-09-25] MEDS: AMLODIPINE BESYLATE 10 MG TAB PO SCH (08:30)
[2019-09-25] MEDS: METOCLOPRAMIDE HCL 10 MG/2ML VIAL IV SCH (08:30)
[2019-09-25] MEDS: RIVASTIGMINE TARTRATE 1.5 MG CAP PO SCH (08:30)
[2019-09-25] MEDS: SERTRALINE HCL 100 MG TAB PO SCH (08:30)
[2019-09-25] MEDS: PANTOPRAZOLE 40 MG 10ML VIAL IV SCH (08:30)
[2019-09-25] MEDS: ASPIRIN 81 MG CHEW TAB PO SCH (08:30)
[2019-09-25 08:52] VITALS: BP 152/59
[2019-09-25 09:42] LABS: BASOPHILS # (AUTO) 0.1 (0.0-0.1); BASOPHILS % 0.8 % (0.0-1.0); EOSINOPHILS # (AUTO) 0.1 (0.0-0.4); EOSINOPHILS % 0.8 % (0.0-6.0); HEMATOCRIT 37.3 % (34.2-44.1); LYMPHOCYTES % 12.8 % (18.0-39.1); MEAN CORPUSCULAR HEMOGLOBIN 28.9 pg (28-32); MEAN CORPUSCULAR HGB CONC 32.2 g/dL (31-35); MEAN CORPUSCULAR VOLUME 89.9 fL (81-99); MONOCYTES # (AUTO) 0.6 (0.2-0.8); MONOCYTES % 7.6 % (4.4-11.3); NEUTROPHILS # (AUTO) 5.9 (2.1-6.9); NEUTROPHILS % 77.1 % (38.7-80.0); PLATELET COUNT 170 x10e3/uL (140-360); RED BLOOD COUNT 4.15 x10e6/uL (3.6-5.1); RED CELL DISTRIBUTION WIDTH 14.5 % (11.7-14.4)
[2019-09-25 10:00] LABS: ANION GAP 12.9 mmol/L (8-16); CALCIUM 8.8 mg/dL (8.4-10.2); CREATININE, SERUM 2.86 mg/dL (0.57-1.11); MAGNESIUM 1.7 MG/DL (1.3-2.1); POTASSIUM 3.9 mmol/L (3.5-5.1)
[2019-09-25] MEDS ORDERED: METOCLOPRAMIDE HCL 10 MG TAB PO SCH (11:30)
--- NOTE | 2019-09-25 11:59 | NUR ---
SPOKE WITH VICKI AT [facility] ACCEPTED PT TO [facility] COVID FORM FAXED AND REC'D PER VICKI TAN SPOKE WITH DTR EILEEN MARISSA AT [phone] AND NOTIFIED HER OF PT'S DC BACK TO [facility] CM LEFT ON DTR'S PHONE-BRI ANN- [phone] AND [phone] NOTIFYING HER OF PT'S TRANSFER BACK IMM EXPLAINED TO DTMichelle ARELLANO, TELEPHONE CONSENT AND PLACED ON CHART NURSE GUTIERREZ NOTIFIED OF PT'S ROOM NUMBER AND NUMBER TO CALL REPORT
[2019-09-25] MEDS ORDERED: ONDANSETRON HCL 4 MG ORAL DISINTEGRATING TAB PO SCH (12:00)
[2019-09-25 12:02] VITALS: BP 175/81
--- NOTE | 2019-09-25 13:47 | NUR ---
report given to Emely at [facility].
[2019-09-25] MEDS ORDERED: SODIUM BICARBONATE 650 MG TAB PO SCH (15:00)
--- NOTE | 2019-09-25 15:46 | NUR ---
pt going to [facility] via ambulance service. pt alert resp even and unlabored at this time. no distress noted.
[2019-09-25] MEDS ORDERED: PANTOPRAZOLE SOD 40 MG TABEC PO SCH (16:30)
--- NOTE | 2019-09-25 23:38 | Discharge Summary ---
ADMISSION DIAGNOSES: 1. Acute kidney injury on chronic kidney disease 4. 2. Hypertension. 3. Type 2 diabetes. 4. Depression. 5. Hyperlipidemia. 6. Neuropathy. 7. Dementia. DISCHARGE DIAGNOSES: 1. Acute kidney injury on chronic kidney disease 4. 2. Hypertension. 3. Type 2 diabetes. 4. Depression. 5. Hyperlipidemia. 6. Neuropathy. 7. Dementia. 8. Distal esophagitis and gastritis as well as duodenal ulcers. HISTORY: Type 2 diabetes, hypertension, depression, GERD, hyperlipidemia, osteoarthritis, CKD 4, neuropathy, dementia. SURGICAL HISTORY: Appendectomy, hysterectomy, right arm surgery, right total hip replacement, cholecystectomy. FAMILY HISTORY: The patient's mother has diabetes. The patient's brother had cancer. SOCIAL HISTORY: Noncontributory. HOSPITAL COURSE: An 79-year-old female, sent from [facility] due to worsening kidney function. Due to her dementia, she is unsure why she was sent. On admission, her creatinine was 3.15 and her GFR was 14. Nephrology was consulted. Chest x-ray showed probable cardiomegaly, atelectasis. Renal ultrasound was ordered by Nephrology, which showed no hydronephrosis or renal calculi, increased right and left renal parenchymal echogenicity compatible with medical renal disease. While there, the patient developed abdominal pain and nausea and vomiting. So, an ultrasound was done, which showed increased bilateral renal cortical echogenicity, status post shira, otherwise unremarkable abdominal ultrasound. She then had a KUB, which showed moderate colonic stool suggesting constipation. Due to persistent nausea and vomiting, GI was consulted and the patient had an EGD. The EGD showed mild distal esophagitis, small sliding hiatal hernia, and gastritis as well as duodenal ulcers. She was started on Protonix b.i.d., Reglan, and Zofran scheduled. After couple of days, the patient is feeling much better and tolerating her food. [facility] with p.o. Reglan, Zofran, and Pepcid. She will continue all other chronic medicines. The patient understands discharge instructions and agrees to plan. Vital signs stable, patient afebrile. Dictated by Traci Nova, MANUELA MD [facility]/MODL /[id number]
== END 2019-09-25 15:45 | DRG 384 ==
LOC: ER 12:25 → ERHOLD 13:58 → MED/SURG3 15:50 → MED/SURG 09-21 15:31
PROVIDERS: ADMIT Internal Medicine; ATTEND Internal Medicine
PROC: 0DB68ZX Excision of Stomach, Via Natural or Artificial Opening Endoscopic, Diagnostic (ICD-10-PCS; principal; 2019-09-21 13:00)
DX: K26.7 Chronic duodenal ulcer without hemorrhage or perforation (principal); N17.9 Acute kidney failure, unspecified; N18.4 Chronic kidney disease, stage 4 (severe); R41.82 Altered mental status, unspecified; E11.22 Type 2 diabetes mellitus with diabetic chronic kidney disease; I12.9 Hypertensive chronic kidney disease with stage 1 through stage 4 chronic kidney disease, or unspecified chronic kidney disease; F32.9 Major depressive disorder, single episode, unspecified; E78.5 Hyperlipidemia, unspecified; F03.90 Unspecified dementia, unspecified severity, without behavioral disturbance, psychotic disturbance, mood disturbance, and anxiety; E11.42 Type 2 diabetes mellitus with diabetic polyneuropathy; K44.9 Diaphragmatic hernia without obstruction or gangrene; K29.70 Gastritis, unspecified, without bleeding; K59.09 Other constipation; Z88.0 Allergy status to penicillin; Z88.2 Allergy status to sulfonamides; Z79.4 Long term (current) use of insulin; Z96.641 Presence of right artificial hip joint; Z83.3 Family history of diabetes mellitus; Z80.9 Family history of malignant neoplasm, unspecified; K21.0 Gastro-esophageal reflux disease with esophagitis; Z90.49 Acquired absence of other specified parts of digestive tract
CPT/HCPCS: 36415; 43239; 71045; 74018; 76700; 76770; 80048; 80053; 80076; 81001; 82150; 82550; 82553; 82570; 82948; 83036; 83690; 83735; 84100; 84156; 84300; 84443; 84484; 84550; 85025; 87040; 88305; 88312; 93005; 96372; 97139; 99284; J0360; J1815; J2001; J2405; J2765; J7030; Q0162